=== PATIENT | male | born 1940 | race Caucasian/White ===

== ENCOUNTER 2017-07-11 21:13 | Emergency (ER) | payer MEDICARE, SELFPAY ==
[2017-07-11 21:17] VITALS: BP 149/80; PULSE 75; RESP 14; TEMP 36.4; O2SAT 99; BMI 23.0
--- NOTE | 2017-07-11 22:03 | PC.NURSE ---
Post op partial knee replacement - dressing intact - area around dressing swollen and reddened - warm to touch - contusion to posterior aspect of knee - pain increases with weight bearing.
[2017-07-11 22:10] LABS: Add Manual Diff / Slide Review NO; Basophils Percent Auto 0.9 % (0-2); Eosinophils Percent Auto 2.8 % (2-4); Hematocrit 38.7 % (41-53); Hemoglobin 13.3 g/dL (13.5-17.5); Lymphocytes Percent Auto 22.5 % (25-40); Mean Corpuscular HGB Conc 34.5 % (30-36); Mean Corpuscular Hemoglobin 31.3 PG (26-34); Monocytes Percent Auto 9.8 % (3-14); Neutrophils Absolute Auto 4600 /uL (3000-5900); Platelet Count 154 X10^3/uL (150-400); Red Blood Cell Count 4.26 X10^6/uL (4.5-5.9); Red Cell Distribution Width 13.7 % (11.6-14.8); White Blood Cell Count 7.2 X10^3/uL (4.5-11.0)
[2017-07-11 22:17] LABS: Lactate (Lactic Acid) 1.1 mmol/L (0.7-2.1)
[2017-07-11 22:19] LABS: BUN Creatinine Ratio 27.5 (6-22); Bilirubin Total 0.8 mg/dL (0.2-1.3); Blood Urea Nitrogen 22 mg/dL (9-20); Carbon Dioxide 31 mmol/L (22-32); Chloride 100 mmol/L (98-107); Estimated Glomerular Filt Rate > 60.0 mL/min (>60); Glucose 107 mg/dL (80-110); Sodium 141 mmol/L (137-145)
[2017-07-11 22:20] LABS: HEMOLYSIS 75 (0-50)
[2017-07-11 22:21] LABS: Potassium 4.5 mmol/L (3.4-5.1)
[2017-07-11 22:25] LABS: C-Reactive Protein Quant 3.5 mg/dL (<1.0)
[2017-07-11 22:32] VITALS: BP 115/70; PULSE 70; RESP 14; O2SAT 100
--- NOTE | 2017-07-11 22:33 | PC.NURSE ---
2nd blood culture obtained
[2017-07-11 22:36] LABS: Procalcitonin < 0.05 ng/mL (<0.5)
[2017-07-11 23:00] VITALS: BP 110/66; PULSE 70; RESP 14; O2SAT 98
--- NOTE | 2017-07-12 05:35 | ED_ITS ---
HPI - Extremity Injury (Lower) General Chief Complaint: Extremity Injury, Lower Stated Complaint: KNEE SURGERY 07/06/17 SWELLING Time Seen by Provider: 07/11/17 21:39 Source: patient Mode of arrival: ambulatory Limitations: no limitations History of Present Illness HPI Narrative: Patient presents to the ED with chief complaint of some worsening of pain and swelling in his L knee which he just had an operation on last week. He had a L partial knee by Dr. Horvath (ortho) here at our hospital. Surgery went well. He denies systemic symptoms such as fever, chills. He can ambulate though with some pain. He can flex/extend at the knee though with pain. He admits to some increased redness and warmth but denies any drainage from the incision site. MD complaint: knee injury Onset (ago): hour(s) Related Data Home Medications Medication Instructions Recorded Confirmed finasteride 5 mg PO DAILY 07/11/17 07/11/17 gabapentin 600 mg PO TID 07/11/17 07/11/17 oxycodone 5 mg PO Q4-6H PRN 07/11/17 07/11/17 tamsulosin 0.4 mg PO DAILY 07/11/17 07/11/17 tizanidine 2 mg PO DAILY 07/11/17 07/11/17 warfarin 5 mg PO 4XW 07/11/17 07/11/17 warfarin 7.5 mg PO 3XW 07/11/17 07/11/17 Allergies Allergy/AdvReac Type Severity Reaction Status Date / Time Penicillins Allergy Severe Rash Verified 07/11/17 21:21 Sulfa (Sulfonamide Allergy Severe Rash Verified 07/11/17 21:21 Antibiotics) tetracycline Allergy Severe Rash Verified 07/11/17 21:21 articaine [From Septocaine] Allergy Intermediate Verified 07/11/17 21:21 epinephrine [From Septocaine] Allergy Intermediate Verified 07/11/17 21:21 Review of Systems Review of Systems All systems reviewed & are unremarkable except as noted in HPI and below Constitutional Denies chills, Denies fever(s), Denies lethargy and Denies weakness Eyes Denies change in vision, Denies eye discharge, Denies irritation and Denies loss of vision ENT Ears, Nose, Mouth, and Throat: Denies change in voice, Denies neck pain and Denies sore throat Cardiovascular Denies chest pain, Denies irregular heart rhythm, Denies lightheadedness, Denies palpitations, Denies dyspnea, Denies dyspnea on exertion and Denies orthopnea Respiratory Denies cough, Denies dyspnea, Denies dyspnea on exertion and Denies wheezing Gastrointestinal Gastrointestinal: Denies abdominal pain, Denies change in bowel habits, Denies diarrhea, Denies nausea and Denies vomiting Genitourinary Denies hematuria, Denies flank pain, Denies urinary incontinence and Denies urinary urgency Musculoskeletal Reports joint swelling, Reports limited range of motion, Denies neck pain, Reports stiffness and Denies tingling Integumentary/Breasts Denies pruritus, Reports erythema, Denies rash and Denies wounds Neurologic Denies confusion, Denies loss of vision, Denies tingling, Denies paresthesias and Denies weakness Psychiatric Denies anxiety, Denies confusion, Denies depression, Denies homicidal ideation and Denies suicidal ideation Endocrine Denies palpitations Hematologic/Lymphatic Denies easy bruising Allergic/Immunologic Denies wheezing PFSH Social History Smoking Status: Never smoker Exam Initial Vital Signs Initial Vital Signs: Vital Signs Temperature 97.5 F L 07/11/17 21:17 Pulse Rate 75 07/11/17 21:17 Respiratory Rate 14 07/11/17 21:17 Blood Pressure 149/80 H 07/11/17 21:17 Pulse Oximetry 99 07/11/17 21:17 Const General: cooperative and well developed Nutritional Appearance: well nourished Orientation: alert, awake, oriented x3 and not confused [facility] Head: normocephalic and atraumatic Ears: external ears normal and TM's normal bilaterally Nose: external nose normal and No nasal discharge Face and sinus: sinuses nontender, face symmetric, no sinus tenderness and No dry mucous membranes Mouth: oral mucosae normal and moist mucous membranes Teeth and gingiva: dentition normal Throat: tonsils normal and uvula midline Resp Effort & Inspection: normal respiratory effort, able to speak in complete sentences, no respiratory distress and no use of accessory muscles Auscultation: clear to auscultation bilaterally, no rales, no rhonchi and no wheezes GI Inspection: non-distended Palpation: soft, no hepatosplenomegaly, No guarding, No pulsatile mass and No tender Auscultation: normal bowel sounds Back/Spine/Pelvis Back: No CVA tenderness Cervical Spine: cervical ROM normal and No pain with cervical ROM Thoracic/Lumbar Spine: thoracic and lumbar spine normal to inspection Skin General: no rashes or lesions noted, No jaundice, No petechiae and warm Extrem Left lower extremity: edema and knee Details: tenderness, swelling and abnormal ROM Course Orders Ordered: ED Orders 07/11/17 21:54 Basic Metabolic Panel Stat Bilirubin Total Stat C-Reactive Protein Quant Stat Complete Blood Count AUTO DIFF Stat Lactate (Lactic Acid) Stat Procalcitonin Stat 07/11/17 22:29 Blood Culture Stat Consultations Consultation #1: call to Dr. Anders (ortho) whom suggests close follow up as an outpatient and shares the opinion that (given exam and labs) this is unlikely to be infectious/septic joint Vital Signs - 8 hr 07/11/17 22:32 07/11/17 23:00 Pulse Rate 70 70 Respiratory Rate 14 14 Blood Pressure [Left Arm] 115/70 110/66 Pulse Oximetry 100 98 MDM - Extremity Injury (Lower) Medical Records Attestation: I reviewed the patient's medical records. Lab Data Result diagrams: 07/11/17 21:54 07/11/17 21:54 Lab Results 07/11/17 07/11/17 07/11/17 Range/Units 21:54 21:54 21:54 WBC 7.2 (4.5-11.0) X10^3/uL RBC 4.26 L (4.5-5.9) X10^6/uL Hgb 13.3 L (13.5-17.5) g/dL Hct 38.7 L (41-53) % MCV 91.0 (80-100) fL MCH 31.3 (26-34) PG MCHC 34.5 (30-36) % RDW 13.7 (11.6-14.8) % Plt Count 154 (150-400) X10^3/uL Neut % (Auto) 64.0 (50-75) % Lymph % (Auto) 22.5 L (25-40) % [place] % (Auto) 9.8 (3-14) % Eos % (Auto) 2.8 (2-4) % Baso % (Auto) 0.9 (0-2) % Neut # (Auto) 4600 (8860-1150) /uL Sodium (137-145) mmol/L Potassium (3.4-5.1) mmol/L Chloride (98-107) mmol/L Carbon Dioxide (22-32) mmol/L BUN (9-20) mg/dL Creatinine (0.66-1.25) mg/dL Estimated GFR (>60) mL/min BUN/Creatinine Ratio (6-22) Glucose (80-110) mg/dL Lactate (0.7-2.1) mmol/L Calcium (8.4-10.2) mg/dL Total Bilirubin (0.2-1.3) mg/dL C-Reactive Protein 3.5 H (<1.0) mg/dL Procalcitonin < 0.05 (<0.5) ng/mL 07/11/17 07/11/17 Range/Units 21:54 21:54 WBC (4.5-11.0) X10^3/uL RBC (4.5-5.9) X10^6/uL Hgb (13.5-17.5) g/dL Hct (41-53) % MCV (80-100) fL MCH (26-34) PG MCHC (30-36) % RDW (11.6-14.8) % Plt Count (150-400) X10^3/uL Neut % (Auto) (50-75) % Lymph % (Auto) (25-40) % [place] % (Auto) (3-14) % Eos % (Auto) (2-4) % Baso % (Auto) (0-2) % Neut # (Auto) (1913-9574) /uL Sodium 141 (137-145) mmol/L Potassium 4.5 (3.4-5.1) mmol/L Chloride 100 (98-107) mmol/L Carbon Dioxide 31 (22-32) mmol/L BUN 22 H (9-20) mg/dL Creatinine 0.80 (0.66-1.25) mg/dL Estimated GFR > 60.0 (>60) mL/min BUN/Creatinine Ratio 27.5 H (6-22) Glucose 107 (80-110) mg/dL Lactate 1.1 (0.7-2.1) mmol/L Calcium 9.0 (8.4-10.2) mg/dL Total Bilirubin 0.8 (0.2-1.3) mg/dL C-Reactive Protein (<1.0) mg/dL Procalcitonin (<0.5) ng/mL Discharge Plan Departure Patient Disposition: Home, Self-Care Clinical Impression: Post-op pain Discharge Date/Time: 07/11/17 23:37 Interventions: ED Discharge Assessment Last Done: 07/11/17 23:37 Instructions: How to Care for a Surgical Wound Activity Restrictions/Additional Instructions: call ortho tomorrow morning for follow up appointment this week Return if worse symptoms such as fever, chills, nausea or vomiting Prescriptions: No Action gabapentin 600 mg tablet 600 mg PO TID RF: 0 tizanidine 2 mg tablet 2 mg PO DAILY RF: 0 tamsulosin 0.4 mg Capsule,Extended Release 24hr 0.4 mg PO DAILY RF: 0 warfarin 5 mg tablet 5 mg PO 4XW RF: 0 warfarin 5 mg tablet 7.5 mg PO 3XW RF: 0 finasteride 5 mg tablet 5 mg PO DAILY RF: 0 oxycodone 5 mg tablet 5 mg PO Q4-6H PRN (Reason: Pain (Scale Score 4-6)) RF: 0 Referrals: Malu Freedman DO [Primary Care Provider] -
== END 2017-07-11 23:37 | disposition home or self-care (01) ==
PROVIDERS: Emergency Provider Emergency Medicine; Family Provider Family Medicine; PCP Family Medicine
DX: G89.18 Other acute postprocedural pain (principal)
CPT/HCPCS: 36415; 36591; 80048; 82247; 83605; 84145; 85025; 86140; 87040; 99282; 99283

== ENCOUNTER 2017-11-29 06:47 | Outpatient (CLI) | payer MEDICARE, SELFPAY ==
[2017-11-29] VITALS (10 sets, daily range): BP systolic 91–122; BP diastolic 57–75; PULSE 69–72; RESP 14–18; TEMP 36.2; O2SAT 99–100
--- NOTE | 2017-11-29 06:49 | DI.RAD.S_ITS ---
PROCEDURE: PAIN C/T INTERLAMINAR INJECT INDICATIONS: SPINAL STENOSIS FINDINGS: Fluoroscopic spot filming was performed to verify placement of spinal needles at the C6-C7 level(s), as labeled on the films. Appropriate location(s) of the needle tip(s) was confirmed by injection of iodinated contrast. IMPRESSION: Successful dorsal translaminar epidural steroid injection needle tip positioning. Dictated by: Philippe Hernandez M.D. on 11/29/2017 at 16:32 Approved by: Philippe Hernandez M.D. on 11/29/2017 at 16:32
[2017-11-29 08:05] LABS: INR 1.2 (0.9-1.3); Prothrombin Time 12.6 SECONDS (10.1-12.7)
--- NOTE | 2017-11-29 08:13 | PC.NURSE ---
pain with headache, discomfor with neck
[2017-11-29] MEDS: MIDAZOLAM 5 MG/5 ML VIAL IV (08:34)
[2017-11-29] MEDS: IOPAMIDOL 15 ML VIAL 3 ML INJ (08:41)
[2017-11-29] MEDS: LIDOCAINE 1% 20 ML INJ 5 ML INJ (08:41)
[2017-11-29] MEDS: DEXAMETHASONE 10 MG/ML VIAL 30 MG INJ (08:41)
--- NOTE | 2017-11-29 08:44 | PC.NURSE ---
transporting pt to post procedure room in stable condition
--- NOTE | 2017-11-29 08:48 | PM.PROC.1 ---
Procedures Date/Time Date of procedure: 11/29/17 Time of procedure: 08:48 General Procedure description: PREOP DIAGNOSIS 1. CERVICAL STENOSIS, 2. CERVICAL HNP WITH UPPER EXTREMITY RADICULAR FEATURES, POST OP DIAGNOSIS 1. CERVICAL STENOSIS, 2. CERVICAL HNP WITH UPPER EXTREMITY RADICULAR FEATURES, PROCEDURES 1. FLUORSCOPICALLY GUIDED CONTRAST CONTROLLED INTERLAMINAR EPIDURAL STEROID INJECTION - C6/7 TL CHIO PHYSICIAN: Vishal Wilkins, DO INDICATIONS Loi is referred by Dr. Freedman for treatment of Cervical HNP with Upper Extremity Paresthesias. FINDINGS Cervical Stenosis due to disc deterioration and nerve root irritation and nerve root irritation DESCRIPTION OF PROCEDURE Fluoroscopically guided, contrast-controlled C6/7 translaminar epidural steroid injection with conscious sedation. Following denial of allergy and review of potential side effects and complications, including, but not necessarily limited to, infection, allergic reaction, local tissue breakdown, temporary as well as permanent nerve injury, stroke, paralysis, and possible , the patient indicated that patient understood and agreed to proceed. An informed consent document was signed by the patient, witnessed by a nurse, and placed in the patient's chart. Additionally, other treatment options including modalities, medications, and physical therapy were reviewed with the patient. After review of previous anaesthesic history and IV conscious sedation the patient was deemed safe to proceed with todays procedure with IV conscious sedation as ASA class II designation. Safety time-out was performed to confirm patient ID, procedure to be performed and site of procedure. IV sedation was accomplished with a combination of 3mg of Versed administered by the RN after DO order, titrated to patient comfort during the course of the procedure while the patient remained responsive to all verbal commands. In the prone position, following sterile prep and drape of the cervical region, the C6/7 translaminar space was identified fluoroscopically. The skin was anesthetized via a 25-gauge 1.5-inch needle with 1% lidocaine solution. At this point, a 25-gauge, 2.5-inch short bevel spinal needle was atraumatically introduced and advanced under fluoroscopic guidance into epidural space at the C6/7 translaminar space. Depth was confirmed on lateral view. Radiological data, including multiple fluoroscopic views of the cervical spine, reveal a spinal needle at the C6/7 translaminar space. Lateral views then show placement of the needle in the epidural space. Subsequent views show contrast material flowing superiorly and inferiorly in the epidural space. DSA fluoroscopy with live contrast injection, once again, confirmed no vascular or intrathecal uptake. At this point, using loss of resistance technique with saline and air, the epidural space was entered. Following negative aspiration, injection of approximately 1.5 cc of Isovue-200 with live fluoroscopy in the AP view confirmed epidural flow in the epidural space without vascular or intrathecal uptake observed. Subsequently, a test dose of 1 cc of 1% lidocaine solution was injected and patient was observed for two minutes without signs or symptoms of complications, including abdominal pain, shortness of breath, bilateral upper or lower extremity weakness, nausea and vomiting, prior to steroid injection. At this point, 3 cc or 30 mg of dexamethasone was then injected without incident. The patient tolerated the procedure well without signs or symptoms of complications prior to being transferred to the recovery area for further monitoring, The patient was then transferred to the recovery area where they were observed for an appropriate period of time after the injection. The patient reported a VAS score of 6 prior to the procedure and a post-procedure VAS of 0. Total Fluoroscopy Time: 37.0 seconds Total Conscious Time: 24min POST OP INSTRUCTIONS The patient was provided a Pain Log to continue to record their response to the target-specific procedure prior to follow-up visit with the referring provider. Additionally, specific post-injection care instructions and a contact number to our office were provided if concerns arise regarding possible complications associated with the procedure are suspected. Vishal Wilkins, Complications: none
--- NOTE | 2017-11-29 08:53 | PC.NURSE ---
pt received from Mya MURRIETA via w/c, alert and able to transfer from W/C to chair, pt awake and able to drink coffee.
== END 2017-11-29 09:15 ==
PROVIDERS: PCP Family Medicine; Visit Provider Physical Medicine & Rehabilitation
DX: M48.02 Spinal stenosis, cervical region (principal); M50.123 Cervical disc disorder at C6-C7 level with radiculopathy
CPT/HCPCS: 36415; 62321; 85610; 99152; J1100; J2250

== ENCOUNTER → 2018-06-14 08:46 | Outpatient (CLI) | payer MEDICARE, SELFPAY ==
--- NOTE | 2018-06-14 08:48 | DI.CT.S_ITS ---
PROCEDURE: CT CERVICAL SPINE WO CON INDICATIONS: c-spine evaluation TECHNIQUE: Noncontrast 3 mm thick sections acquired from the skull base to the T4 level. Sagittal and coronal reformats were then constructed. For radiation dose reduction, the following was used: automated exposure control, adjustment of mA and/or kV according to patient size. COMPARISON: None. FINDINGS: Image quality: Excellent. Bones: No fractures or dislocations. Visualized superior ribs are intact. Degenerative changes are seen throughout, with moderate disc space narrowing at C4-C5 and moderate to severe disc space narrowing at C6-C7. Endplate irregularity and sclerosis are seen, which are most prominent at C6-C7. Calcification/ossification can be seen within the C2-C3 disc space and to a milder degree within the anterior C4-C5 disc space. Facet arthropathy is seen, including fusion of the C2-C3 level on both sides, right worse than left, as well as fusion of the facet joints on the left side at C4-C5. Soft tissues: Prevertebral soft tissues are normal in thickness. No paravertebral hematomas. No apical pneumothoraces. A pacer device is seen. IMPRESSION: Multiple levels of cervical spine degenerative change are seen, including moderate to severe disc space narrowing at C6-C7. Dictated by: Jose Guadalupe Bright M.D. on 06/14/2018 at 8:24 Approved by: Jose Guadalupe Bright M.D. on 06/14/2018 at 8:27
== END ==
PROVIDERS: PCP Family Medicine; Visit Provider Physical Medicine & Rehabilitation
DX: M48.02 Spinal stenosis, cervical region (principal); M47.812 Spondylosis without myelopathy or radiculopathy, cervical region
CPT/HCPCS: 72125

== ENCOUNTER 2018-07-18 06:54 | Outpatient (CLI) | payer MEDICARE, SELFPAY ==
[2018-07-18] VITALS (7 sets, daily range): BP systolic 92–120; BP diastolic 69–89; PULSE 65–89; RESP 16; TEMP 36.1; O2SAT 97–100
--- NOTE | 2018-07-18 06:56 | DI.RAD.S_ITS ---
PROCEDURE: PAIN C/T FACET INJ/BLK 1ST L INDICATIONS: SPONDYLOSIS FINDINGS: Fluoroscopic spot filming was performed to verify placement of spinal needles at the C4-C5, C5-C6, and C6-C7 level(s), as labeled on the films. Appropriate location(s) of the needle tip(s) was confirmed by injection of iodinated contrast. IMPRESSION: Intraprocedural examination within normal limits. Dictated by: Jose Guadalupe Bright M.D. on 07/18/2018 at 8:53 Approved by: Jose Guadalupe Bright M.D. on 07/18/2018 at 8:55
[2018-07-18 08:13] LABS: Prothrombin Time 12.1 SECONDS (10.1-12.7)
[2018-07-18] MEDS: fentaNYL 100 MCG/2 ML INJ 50 MCG IV (08:30)
[2018-07-18] MEDS: MIDAZOLAM 5 MG/5 ML VIAL IV (08:30)
[2018-07-18] MEDS: IOPAMIDOL 15 ML VIAL 3 ML INJ (08:37)
[2018-07-18] MEDS: LIDOCAINE 1% 20 ML INJ 5 ML INJ (08:38)
--- NOTE | 2018-07-18 08:49 | PC.NURSE ---
Pt tolerated procedure well. Able to get pt off table and into wheelchair with 2 person standby assist. Transferred pt via wheelchair to pre procedure room for continued monitoring with Mya MURRIETA.
--- NOTE | 2018-07-18 08:57 | P.PCN_ITS ---
Procedures Date/Time Date of procedure: 07/18/18 Time of procedure: 08:55 General Procedure description: PREOP DIAGNOSIS 1. FACET ARTHROPATHY 2. AXIAL NECK PAIN POST OP DIAGNOSIS 1. FACET ARTHROPATHY 2. AXIAL NECK PAIN PROCEDURES 1. FLUOROSCOPICALLY GUIDED, CONTRAST-CONTROLLED RIGHT C4/5, C5/6 AND C6/7 FACET JOINT INJECTIONS WITH CONSCIOUS SEDATION. PHYSICIAN: Vishal Wilkins, INDICATIONS Loi is referred by Dr. Freedman for treatment of Axial Neck Pain DESCRIPTION OF PROCEDURE Fluoroscopically guided, contrast-controlled right C4/5, C5/6 and C6/7 facet joint injections with conscious sedation. Following denial of allergy and review of potential side effects and complications, including, but not necessarily limited to, infection, allergic reaction, local tissue breakdown, stroke, temporary or permanent nerve injury and paralysis, the patient indicated that the patient understood and agreed to proceed. An informed consent document was signed by the patient, witnessed by a nurse, and placed in the patient's chart. Additionally, other treatment options including medications, modalities, and physical therapy were reviewed with the patient. After review of previous anaesthesic history and IV conscious sedation the patient was deemed safe to proceed with todays procedure with IV conscious sedation as ASA class II designation. Safety time-out was performed to confirm patient ID, procedure to be performed and site of procedure. IV sedation was accomplished with a combination of 3mg of Versed and 50mcg Fentanyl was administered by the RN after DO order, titrated to patient comfort during the course of the procedure while the patient remained responsive to all verbal commands In the prone position, following sterile prep and drape of the cervical spine region, the posterior aspect of the right C4/5, C5/6 and C6/7 facet joints were identified fluoroscopically. The skin was anesthetized via a 25-gauge 1.5-inch needle with 1% lidocaine solution into the corresponding facet joints. At this point, a 25-gauge 2.5-inch spinal needle was atraumatically introduced and advanced under fluoroscopic guidance into the corresponding facet joints. Following negative aspiration, injections of approximately 0.2-cc of Isovue 200 confirmed interarticular placement without vascular uptake. At this point, a total of 1 cc including 0.5 cc or 5mg of dexamethasone combined with 0.5cc of 1% lidocaine solution was injected without complication into each of the corresponding facet joints. The procedure tolerated the procedure well without signs or symptoms of complications prior to transfer to the recovery area continued monitoring without incident. The patient was then transferred to the recovery area where they were observed for an appropriate period of time after the injection. The patient reported a VAS score of 7 prior to the procedure and a post- procedure VAS of 0. Total Fluoroscopy Time: 20.5 seconds Total Conscious Sedation Time: 24 min POST OP INSTRUCTIONS They were provided a Pain Log to continue to record their response to the target-specific procedure prior to their follow-up visit with their referring physician. Additionally, specific post-injection care instructions and a contact number to our office were provided if concerns arise regarding possible complications associated with the procedure are suspected. Vishal Wilkins, Complications: none
--- NOTE | 2018-07-18 08:59 | PC.NURSE ---
ACCEPTED CARE OF PT IN POST PROC AREA IN STABLE CONDITION
[2018-07-18] MEDS: BUPIVACAINE 0.5% (PF) VIAL 2 ML INJ (09:02)
[2018-07-18] MEDS: DEXAMETHASONE 10 MG/ML VIAL 30 MG INJ (09:02)
== END 2018-07-18 09:29 | disposition home or self-care (01) ==
LOC: RAD 06:55
PROVIDERS: PCP Family Medicine; Visit Provider Physical Medicine & Rehabilitation
DX: M47.812 Spondylosis without myelopathy or radiculopathy, cervical region (principal); M54.2 Cervicalgia; Z01.812 Encounter for preprocedural laboratory examination; Z79.01 Long term (current) use of anticoagulants
CPT/HCPCS: 36415; 64490; 64491; 64492; 64494; 64495; 85610; 99152; J1100; J2250; J3010

== ENCOUNTER 2018-08-08 07:52 | Outpatient (CLI) | payer MEDICARE, SELFPAY ==
[2018-08-08] VITALS (8 sets, daily range): BP systolic 109–130; BP diastolic 63–87; PULSE 69–101; RESP 16; TEMP 36.2; O2SAT 97–100
--- NOTE | 2018-08-08 07:55 | DI.RAD.S_ITS ---
PROCEDURE: PAIN L/SI FACET INJ/BLK 1STL INDICATIONS: SPONDYLOSIS FINDINGS: Fluoroscopic spot filming was performed to verify placement of spinal needles as labeled on the films. Appropriate location(s) of the needle tip(s) was confirmed by injection of iodinated contrast. IMPRESSION: Fluoroscopy for pain management. Dictated by: Matheus Stringer M.D. on 08/08/2018 at 11:54 Approved by: Matheus Stringer M.D. on 08/08/2018 at 11:54
--- NOTE | 2018-08-08 09:59 | P.PCN_ITS ---
Procedures Date/Time Date of procedure: 08/08/18 Time of procedure: 09:56 General Procedure description: PREOP DIAGNOSIS 1. FACET ARTHROPATHY 2. AXIAL NECK PAIN POST OP DIAGNOSIS 1. FACET ARTHROPATHY 2. AXIAL NECK PAIN PROCEDURES 1. FLUOROSCOPICALLY GUIDED, CONTRAST-CONTROLLED RIGHT C4/5, C5/6 AND C6/7 FACET JOINT INJECTIONS WITH CONSCIOUS SEDATION. PHYSICIAN: Vishal Wilkins, INDICATIONS Loi is referred by Dr. Freedman for treatment of Axial Neck Pain DESCRIPTION OF PROCEDURE Fluoroscopically guided, contrast-controlled right C4/5, C5/6 and C6/7 facet joint injections with conscious sedation. Following review of allergy and review of potential side effects and complications, including, but not necessarily limited to, infection, allergic reaction, local tissue breakdown, stroke, temporary or permanent nerve injury and paralysis, the patient indicated that the patient understood and agreed to proceed. An informed consent document was signed by the patient, witnessed by a nurse, and placed in the patient's chart. Additionally, other treatment options including medications, modalities, and physical therapy were reviewed with the patient. After review of previous anaesthesic history and IV conscious sedation the patient was deemed safe to proceed with todays procedure with IV conscious sedation as ASA class II designation. Safety time-out was performed to confirm patient ID, procedure to be performed and site of procedure. IV sedation was accomplished with a combination of 2mg of Versed and 50mcg of Fentanyl was administered by the RN after DO order, titrated to patient comfort during the course of the procedure while the patient remained responsive to all verbal commands In the prone position, following sterile prep and drape of the cervical spine region, the posterior aspect of the right C5/6 and C6/7 facet joints were identified fluoroscopically. The skin was anesthetized via a 25-gauge 1.5-inch needle with 1% lidocaine solution into the corresponding facet joints. At this point, a 25-gauge 2.5-inch spinal needle was atraumatically introduced and advanced under fluoroscopic guidance into the corresponding facet joints. Following negative aspiration, injections of approximately 0.2-cc of Isovue 200 confirmed interarticular placement without vascular uptake. At this point, a total of 1 cc including 0.5 cc or 5 mg of dexamethasone combined with 0.5 cc of 1% lidocaine solution was injected without complication into each of the corresponding facet joints. The procedure tolerated the procedure well without signs or symptoms of complications prior to transfer to the recovery area continued monitoring without incident. The patient was then transferred to the recovery area where they were observed for an appropriate period of time after the injection. The patient reported a VAS score of 7 prior to the procedure and a post- procedure VAS of 0. Total Fluoroscopy Time: 20.5 seconds Total Conscious Sedation Time: 24 min POST OP INSTRUCTIONS They were provided a Pain Log to continue to record their response to the target-specific procedure prior to their follow-up visit with their referring physician. Additionally, specific post-injection care instructions and a contact number to our office were provided if concerns arise regarding possible complications associated with the procedure are suspected. Vishal Wilkins, Complications: none
[2018-08-08] MEDS: fentaNYL 100 MCG/2 ML INJ 50 MCG IV (10:09)
[2018-08-08] MEDS: MIDAZOLAM 5 MG/5 ML VIAL IV (10:09)
[2018-08-08] MEDS: DEXAMETHASONE 10 MG/ML VIAL 30 MG INJ (10:14)
[2018-08-08] MEDS: IOPAMIDOL 15 ML VIAL 3 ML INJ (10:14)
--- NOTE | 2018-08-08 10:23 | PC.NURSE ---
Pt returned via wheelchair awake and alert, able to get into chair from w/c with standby assist. Resumed monitoring from Mya MURRIETA.
[2018-08-08] MEDS: BUPIVACAINE 0.5% (PF) VIAL 2 ML INJ (10:26)
== END 2018-08-08 10:45 ==
LOC: RAD 07:54
PROVIDERS: PCP Family Medicine; Visit Provider Physical Medicine & Rehabilitation
DX: M47.812 Spondylosis without myelopathy or radiculopathy, cervical region (principal); M54.2 Cervicalgia; Z01.812 Encounter for preprocedural laboratory examination
CPT/HCPCS: 36415; 64490; 64491; 64492; 64493; 85610; 99152; J1100; J2250; J3010

== ENCOUNTER → 2018-11-20 06:32 | Outpatient (CLI) | payer MEDICARE, SELFPAY ==
--- NOTE | 2018-11-20 | DI.ECHO.S_ITS ---
[facility]---------+ [facility] +---------+ : : [address] : : : : [id number] : : : : Phone: [phone]+ Echocardiogram Report + + :Name: CONNER ARIAS Study Date: 11/20/2018 Height: 72 in : :[facility] Location: [facility] Weight: 165 lb : : Gender: Male BSA: 2.0 m2 : :: 1940 Age: 78 yrs BP: 108/60 mmHg: :Reason For Study: Dizziness : :Ordering Physician: William : :Vance Cardoza Performed By: Carmella Page : + + Interpretation Summary The left ventricle is mildly dilated. Left ventricular systolic function is mild to moderately reduced. The ejection fraction is estimated to be 40-45%. LVEF has not changed since 08/15/2013. There is mild to moderate global hypokinesis of the left ventricle. There is a mild dyssynchronous contraction pattern due to the paced rhythm. The right ventricle is mild to moderately dilated. There is a pacemaker lead in the right ventricle. The right ventricular systolic function is normal. The right ventricular systolic pressure is estimated to be at least 29 mmHg based on an estimated right atrial pressure of 8 mm Hg. Both atria are severely dilated. Both atria have significantly increased in size since the prior echo exam. There is moderate mitral regurgitation. There is moderate to severe tricuspid regurgitation. Both MR and TR have increased. The aortic root is mildly dilated. Procedure: A two-dimensional transthoracic echocardiogram with color flow and Doppler was performed. The study quality was technically adequate. Comparison is made with the echocardiogram of 08/15/2013. The patient has a paced rhythm. Left Ventricle: The left ventricle is mildly dilated. There is normal left ventricular wall thickness. Left ventricular systolic function is mild to moderately reduced. The ejection fraction is estimated to be 40-45%. There is mild to moderate global hypokinesis of the left ventricle. There is a mild dyssynchronous contraction pattern due to the paced rhythm. Diastolic function could not be accurately assessed due to atrial fibrillation. Right Ventricle: The right ventricle is mild to moderately dilated. There is a pacemaker lead in the right ventricle. The right ventricular systolic function is normal. Atria: Both atria are severely dilated. Both atria have significantly increased in size since the prior echo exam. There is no Doppler evidence for an interatrial shunt. Mitral Valve: The mitral valve leaflets appear mildly thickened, but open well. There is moderate mitral regurgitation. Compared to the prior echo study, there has been an increase in the severity of mitral regurgitation. Aortic Valve: The aortic valve is trileaflet. The aortic valve opens well. There is trace aortic regurgitation. Tricuspid Valve: The tricuspid valve is normal in structure and function. There is moderate to severe tricuspid regurgitation. The right ventricular systolic pressure is estimated to be at least 29 mmHg based on an estimated right atrial pressure of 8 mm Hg. Pulmonic Valve: The pulmonic valve is not well visualized. There is trace pulmonic regurgitation. Great Vessels: The aortic root is mildly dilated. The ascending aorta is normal in size. The pulmonary artery is not well visualized, but is probably normal size. The IVC is dilated (diameter is greater than 2.1 cm) yet it collapses greater than 50% with a sniff. This suggests a right atrial pressure of 8 mm Hg. Pericardium/ Pleura There is no pericardial effusion. There is no pleural effusion. MMode/2D Measurements & Calculations LVIDd: 5.6 cm LVOT diam: 2.2 cm LVIDs: 4.0 cm Ao root diam: 3.9 cm FS: 28.0 % asc Aorta Diam: 3.3 cm EPSS: 0.15 cm IVSd: 0.64 cm LVPWd: 0.57 cm LV schmitt. diameter/BSA (cm/m^2): 2.9 LV sys. diameter/BSA (cm/m^2): 2.1 LA A2 area: 29.3 cm2 RA long axis: 6.0 cm LA A4 area: 29.9 cm2 RA area: 27.7 cm2 LA length (vol): 6.6 cm RA vol: 108.5 ml LA vol: 112.7 ml RA : 55.3 ml/m2 LA vol index: 57.4 ml/m2 IVC diam: 2.5 cm RVD1 (basal): 4.8 cm RVD2 (mid): 3.9 cm TAPSE: 2.5 cm Doppler Measurements & Calculations Ao V2 max: 109.4 cm/sec LVOT Max Nagi: 76.1 cm/sec Ao V2 mean: 85.4 cm/sec LV V1 max P.3 mmHg Ao max P.8 mmHg LV V1 VTI: 14.0 cm Ao mean P.1 mmHg RONALDO(I,D): 2.4 cm2 Ao V2 VTI: 21.5 cm RONALDO(V,D): 2.5 cm2 sev ratio: 0.65 RONALDO indexed to BSA (cm^2/m^2): 1.2 MV E max nagi: 61.4 cm/sec TR max nagi: 227.3 cm/sec Med Peak E' Nagi: 6.8 cm/sec TR max P.7 mmHg E/E' med: 9.0 PA V2 max: 53.3 cm/sec Lat Peak E' Nagi: 12.7 cm/sec PA V2 mean: 38.9 cm/sec E/E' lat: 4.8 PA mean P.65 mmHg E/e' average: 6.9 PA Accel Time: 0.13 sec MV P1/2t: 61.7 msec MV P1/2t max nagi: 61.8 cm/sec SV(LVOT): 50.7 ml MVA(P1/2t): 3.6 cm2 Reading Physician:05:51 PM
== END ==
PROVIDERS: PCP Family Medicine; Visit Provider Hospitalist
DX: I08.1 Rheumatic disorders of both mitral and tricuspid valves (principal); R42 Dizziness and giddiness; Z95.0 Presence of cardiac pacemaker
CPT/HCPCS: 93306

== ENCOUNTER → 2019-07-24 08:28 | Outpatient (CLI) | payer MEDICARE, SELFPAY ==
--- NOTE | 2019-07-24 08:29 | DI.RAD.S_ITS ---
PROCEDURE: XR LUMBAR SPINE MIN 4V INDICATIONS: Exacerbation of axial low back pain TECHNIQUE: 5 views of the lumbar spine were acquired. COMPARISON: [facility] [place], [place], SPINE LUMB MIN 4VW, 06/02/2016, 8:33. FINDINGS: Bones: No fracture or focal osseous destruction. Multilevel degenerative endplate sclerosis and spurring. Diffuse facet arthropathy. Slight levocurvature of the lumbar spine. Bilateral hip degeneration. Sacroiliac spurring and sclerosis bilaterally. Severe narrowing of the L4-L5 and L5-S1 disc spaces. Mild/moderate narrowing of the remaining lumbar disc spaces. Soft tissues: Overlying bowel gas pattern is normal. No suspicious soft tissue calcifications. Oblique images: No pars defects. IMPRESSION: Diffuse lumbar spondylosis and facet arthropathy. Overall, no definite interval change Slight levocurvature Dictated by: Elias Markham M.D. on 07/24/2019 at 9:50 Approved by: Elias Markham M.D. on 07/24/2019 at 9:52
--- NOTE | 2019-07-24 09:00 | DI.CT.S_ITS ---
PROCEDURE: CT LUMBAR SPINE WO CON INDICATIONS: Exacerbation of axial low back pain TECHNIQUE: Noncontrast 3 mm thick sections acquired from the T12 level to the sacrum. Sagittal and coronal reformats were constructed. For radiation dose reduction, the following was used: automated exposure control. COMPARISON: [facility], CT, L-SPINE WITHOUT CONTRAST, 11/26/2014, 12:39. FINDINGS: Image quality: Excellent. Bones: There are no fractures or dislocations. No suspicious osseous lesions are identified. Sclerotic and lytic endplate changes consistent with degenerative change are noted at multiple levels as well as scattered Schmorl's nodes. There is severe disc space narrowing at L4-5, mild to moderate L5-S1 and mild throughout the remainder of the lumbar spine. L4-L5 is progressive compared to prior exam. Mild disc bulges are present at L1-L2, L2-3, L3-4 including a small left foraminal protrusion, mild disc bulge at L4-5 and L5-S1. Mild spinal stenosis is present at L1-L2, moderate to severe L2-L3, moderate L3-4. Minimal progression of spinal stenosis is noted. Mild right foraminal narrowing L2-3, minimal to mild right L3-4, mild left L3-4, severe left and moderate to severe right L4-L5 with minimal flattening on the left,. There is very minimal interval progression of foraminal narrowing most notable at L4-5. Multilevel facet arthropathy is present. Soft tissues: No retroperitoneal masses or hematomas. Visualized aorta is normal in caliber. IMPRESSION: 1. Multilevel degenerative changes with areas of progression as noted above. 2. Multilevel foraminal narrowing most severe at L4-5 secondary to facet arthropathy. 3. Multilevel spinal stenosis most notable at L2-3 secondary to disc bulge with contributing effect of facet/ligamentum flavum arthropathy. Dictated by: Hanny Nguyễn M.D. on 07/24/2019 at 10:50 Approved by: Hanny Nguyễn M.D. on 07/24/2019 at 11:02
== END ==
PROVIDERS: PCP Family Medicine; Referring Provider Physical Medicine & Rehabilitation; Visit Provider Physical Medicine & Rehabilitation
DX: M54.5 Low back pain (principal); M47.27 Other spondylosis with radiculopathy, lumbosacral region; M47.26 Other spondylosis with radiculopathy, lumbar region; M48.061 Spinal stenosis, lumbar region without neurogenic claudication; M48.07 Spinal stenosis, lumbosacral region; M16.0 Bilateral primary osteoarthritis of hip
CPT/HCPCS: 72110; 72131

== ENCOUNTER → 2019-08-27 11:20 | Outpatient (CLI) | payer MEDICARE, SELFPAY ==
[2019-08-28 09:57] LABS: COVID19 Sendout Not Detected (Not Detect)
== END ==
PROVIDERS: PCP Family Medicine; Visit Provider Student in an Organized Health Care Education/Training Program
DX: Z01.812 Encounter for preprocedural laboratory examination (principal)
CPT/HCPCS: 87635

== ENCOUNTER 2019-08-30 09:40 | Outpatient (CLI) | payer MEDICARE, SELFPAY ==
[2019-08-30] VITALS (12 sets, daily range): BP systolic 110–147; BP diastolic 50–96; PULSE 68–140; RESP 12–16; TEMP 36; O2SAT 87–100
--- NOTE | 2019-08-30 09:46 | DI.RAD.S_ITS ---
PROCEDURE: PAIN C/T FACET INJ/BLK 1ST L INDICATIONS: CERVICAL RADICULOPATHY COMPARISON: [facility], , PAIN C/T FACET INJ/BLK 1ST L, 07/18/2018, 8:43. FINDINGS: Fluoroscopic spot filming was performed to verify placement of spinal needles at the right C4-C5, C5-C6 and C6-C7 facet level(s), as labeled on the films. Appropriate location(s) of the needle tip(s) was confirmed by injection of iodinated contrast. IMPRESSION: Spinal needles at the level of the right C4-C5, C5-C6 and C6-C7 facets. Dictated by: Jennifer William MD, PhD on 08/31/2019 at 14:04 Approved by: Jennifer William MD, PhD on 08/31/2019 at 14:05
[2019-08-30] MEDS: fentaNYL 100 MCG/2 ML INJ 50 MCG IV (11:20)
[2019-08-30] MEDS: MIDAZOLAM 5 MG/5 ML VIAL IV (11:21)
[2019-08-30] MEDS: BUPIVACAINE 0.25% (PF) VIAL 2 ML INJ (11:22)
[2019-08-30] MEDS: IOPAMIDOL 15 ML VIAL 3 ML INJ (11:22)
[2019-08-30] MEDS: DEXAMETHASONE 10 MG/ML VIAL 30 MG INJ (11:23)
--- NOTE | 2019-08-30 11:44 | P.PCN_ITS ---
Date/Time/Diagnoses Date of procedure: 08/30/19 Time of procedure: 11:45 Pre-procedure diagnosis: 1. FACET ARTHROPATHY 2. AXIAL NECK PAIN Post-procedure diagnosis: same Procedure Notes Procedure: 1. FLUOROSCOPICALLY GUIDED, CONTRAST-CONTROLLED RIGHT C4/5, C5/6 AND C6/7 FACET JOINT INJECTIONS WITH CONSCIOUS SEDATION. Indications: Loi is referred by Dr. Freedman for treatment of Axial Neck Pain Physician: Vishal Wilkins Total Fluoroscopy time (seconds): 11 Total sedation minutes: 24 Complications: none Procedure in detail & Post-procedure care: DESCRIPTION OF PROCEDURE Fluoroscopically guided, contrast-controlled right C4/5, C5/6 and C6/7 facet joint injections with conscious sedation. Following review of allergy and review of potential side effects and complications, including, but not necessarily limited to, infection, allergic reaction, local tissue breakdown, stroke, temporary or permanent nerve injury and paralysis, the patient indicated that the patient understood and agreed to proceed. An informed consent document was signed by the patient, witnessed by a nurse, and placed in the patient's chart. Additionally, other treatment options including medications, modalities, and physical therapy were reviewed with the patient. After review of previous anaesthesic history and IV conscious sedation the patient was deemed safe to proceed with today?s procedure with IV conscious s edation as ASA class II designation. Safety time-out was performed to confirm patient ID, procedure to be performed and site of procedure. IV sedation was accomplished with a combination of 4mg of Versed and 50mcg of Fentanyl was administered by the RN after DO order, titrated to patient comfort during the course of the procedure while the patient remained responsive to all verbal commands In the prone position, following sterile prep and drape of the cervical spine region, the posterior aspect of the right C4/5, C5/6 and C6/7 facet joints were identified fluoroscopically. The skin was anesthetized via a 25-gauge 1.5-inch needle with 1% lidocaine solution into the corresponding facet joints. At this point, a 25-gauge 2.5-inch spinal needle was atraumatically introduced and advanced under fluoroscopic guidance into the corresponding facet joints. Following negative aspiration, injections of approximately 0.2-cc of Isovue 200 confirmed interarticular placement without vascular uptake. At this point, a total of 1cc including 0.5cc or 5mg of dexamethasone combined with 0.5cc of 1% lidocaine solution was injected without complication into each of the corresponding facet joints. The procedure tolerated the procedure well without signs or symptoms of complications prior to transfer to the recovery area continued monitoring without incident. The patient was then transferred to the recovery area where they were observed for an appropriate period of time after the injection. The patient reported a VAS score of 7 prior to the procedure and a post- procedure VAS of 1. POST OP INSTRUCTIONS They were provided a Pain Log to continue to record their response to the target-specific procedure prior to their follow-up visit with their referring p hysician. Additionally, specific post-injection care instructions and a contact number to our office were provided if concerns arise regarding possible complications associated with the procedure are suspected.
--- NOTE | 2019-08-30 12:22 | PC.NURSE ---
1138: pt arrived to pre proc room via wc. stable transfer to chair, resumed monitoring
--- NOTE | 2019-08-30 15:45 | PC.NURSE ---
Tolerated procedure without incident. VSS upon transfer to post procedure room to [facility] Landaverde. Versed and Fentanyl administered by Paloma Ball. All other meds given by Dr. Wilkins.
== END 2019-08-30 12:05 | disposition home or self-care (01) ==
LOC: RAD 09:43
PROVIDERS: PCP Family Medicine; Referring Provider Physical Medicine & Rehabilitation; Visit Provider Physical Medicine & Rehabilitation
DX: M47.812 Spondylosis without myelopathy or radiculopathy, cervical region (principal); M54.2 Cervicalgia
CPT/HCPCS: 64490; 64491; 64492; 64494; 64495; 99152; J1100; J2250; J3010

== ENCOUNTER 2019-10-24 08:50 | Outpatient (RCR) | payer MEDICARE, SELFPAY ==
--- NOTE | 2019-10-26 11:27 | ST.OPIE ---
Visit Care Team Role Provider Type Malu Freedman DO Family Provider Non-Staff Primary Care Provider Specialty: Family Practice Address: [address] [place] [address], [phone] Email: Swati Ceballos PA-C Attending Provider Non-Staff Referring Provider Specialty: Nursing Address: [address] [place] [address], [id number] Email: Speech-Language Pathology Initial Evaluation [employer] Clinical Swallow Evaluation Start: 10/24/19 11:57 Freq: Status: Active Protocol: Document 10/24/19 11:57 LL (Rec: 10/24/19 12:28 LL [id number]) Clinical Swallow Evaluation Session Time Visit Start Date 10/24/19 Visit Start Time 09:30 Visit Stop Date 10/24/19 Visit Stop Time 10:20 Total Visit Minutes 50 Visit Information Visit Number 1 Plan of Care Dates 10/24/19-12/24/19 Insurance Information Medicare Referral Referring Provider Swati Ceballos PA-C Reason for Referral Dysphagia Setting Assessment Location Outpatient Care Visit Type Note Type Initial evaluation Next Note Type Next Note Type Treatment Note Patient Information Identification Type Name,ID Card History Loi is a 79-year-old male with complaints of increased swallowing difficulty over the last several months. This [employer] S[employer]IOR ASSOCIATE was unable to obtain Loi?s H&P and/or visit notes from [facility] prior to this evaluation. Loi reported that he has been experiencing swallowing difficulty over the last 5 years and that these symptoms have worsened over the last several months. Loi reported the following symptoms: daily coughing / throat clearing with food and liquid, sensation of food and medications getting stuck ( pointed to upper chest), increased effort to initiate swallow (e.g., Loi stated ?I have to really think about swallowing?), and choking x 1 episode around 6 weeks ago. Loi reported that he received a modified barium swallow study (MBS) in [place] on 04/19/19 and provided this [employer]AX SENIOR ASSOCIATE with a copy of recommended safe swallowing guidelines by previous T[employer] SENIOR ASSOCIATE. Recommended safe swallowing guidelines were as follows: avoid using a straw, small / single sips, alternate liquids and solids, limit conversation and distractions while eating or drinking, avoid dry foods, and take medications one at a time with liquids or carrier ( e.g., pudding, applesauce). When describing previous MBS results, Loi stated ? everything went down fine but there was leftover food sitting on my flapper? 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 Loi also reported history of pneumonia, aspiration, and silent aspiration. Loi self- reported a diagnosis of neuropathy and that the neurologist (name unknown) stated that this could cause swallowing issues. Loi also reported that he had a neurology appointment scheduled for testing but was unable to make the appointment . Loi reported no additional medical / surgical history. Subjective Observations Loi arrived on time unaccompanied. He provided a detailed case history and was extremely pleasant to work with. Reported by Patient Pain Intensity 0 Pain Scale Used Numeric (0 - 10) Other Symptoms Choking,Coughing,Difficulty swallowing liquids,Difficulty swallowing pills,Difficulty swallowing solids,Food gets stuck,History of aspiration or pneumonia Comment Loi reported the following symptoms: daily coughing / throat clearing with food and liquid, sensation of food and medications getting stuck ( pointed to upper chest), increased effort to initiate swallow (e.g., Loi stated ?I have to really think about swallowing?), and choking x 1 episode around 6 weeks ago. Loi reported that he has not been following most of the recommended swallowing precautions provided by previous T[employer] SENIOR ASSOCIATE after MBS on . Current Diet Regular,Thin liquids Baseline Feeding Method Independent in self-feeding Patient Questionnaire No Objective Assessment Mental Status Alert,Cooperative Oral Integrity WFL Dentition Within normal limits,Upper dentures/partials,Adequate denture or partial fitting Lip Function Mild impairment Observation of Lips at Rest Right sided weakness/Drooping Pucker Reduced strength Lip Retraction Right sided weakness/Drooping Alternating Pucker/Lip Retraction Incoordination Tongue Function Mild impairment Observations of Tongue at Rest Involuntary movement(s) Tongue Protrusion Involuntary movement(s) Tongue Retraction Within normal limits Tongue Lateralization Reduced strength, Incoordination Jaw Function Within normal limits Hard/Soft Palate Function Within normal limits Nasality Within normal limits Phonation Within normal limits Respiratory Sufficiency Within normal limits Comment Oral Mechanism Examination: generalized facial weakness ( mild), upper lip fasciculations when smiling ( labial retraction), minimal right sided weakness / slight drooping, lingual and labial incoordination, and lingual fasciculations. Natural dentition with small upper right partial. Adequate dentition for age. Food and Liquid Trials Position During Assessment Upright (90 degrees) Liquids Trialed Thin Solids Trialed Puree,Regular Administration Type Cup single sip,Controlled cup sip,Cup consecutive sips,Self- feeding Oral Impairment Moderately impaired Oral Phase Comments Delayed swallow initiation (e. g., Loi stated I have to really think about swallowing ), mildly increased mastication time, and minimal oral residue with cracker, which cleared with a lingual sweep. Pharyngeal Impairment Moderately impaired Pharyngeal Phase Comments Immediate cough and throat clear with thin water by cup. Delayed cough after PO trials. Loi reported feeling food stuck in his throat, but sensation cleared with use of liquid wash following cracker. Fatigue/Endurance Endurance WNL Findings Swallowing Function Oropharyngeal phase dysphagia Severity of Swallow Impairment Moderately impaired Contributing Factors to Swallow Reduced oral strength/ Impairment coordination/sensation, Impaired oral-pharyngeal transport,Delayed swallow initiation Comments Impulsivity and not following recommended swallow strategies Prognosis Good Based on Cognitive status Comment Loi currently presents with moderate oropharyngeal dysphagia and signs of aspiration during and after intake as well as reported symptoms of swallowing difficulties listed above. It is recommended that Loi receive a second modified barium swallow study to determine least restrictive diet, risk for aspiration / aspiration pneumonia, and skilled therapy recommendations. It is also recommended that Loi receive a referral to a neurologist. Impact on Safety and Functioning Risk for aspiration Recommendations Instrumental Assessment Yes Swallowing Treatment Yes Recommended Solids Regular Recommended Liquids Thin Safety Precautions/Swallowing Reduce distractions,Remain Recommendations upright (90 degrees) during all oral intake,Small bites and sips when eating,Slow rate ; swallow between bites,No straw,Alternate liquids and solids Medication Recommendations Whole in Carrier,One at a Time Referrals Recommended Referrals Neurology,Primary Care Provider Education Patient/Caregiver Education Described results of evaluation,Patient expressed understanding of evaluation, Patient expressed agreement with goals & treatment plans, Patient expressed understanding of safety precautions,Patient expressed understanding of feeding recommendations,Patient requires further education/ training Goals Short-term Goals Loi will participate in a modified barium swallow study (MBS) to determine least restrictive diet, risk for aspiration, and skilled therapy recommendations. Recommend ST follow-up after MBS to review results and guide POC.
--- NOTE | 2020-03-18 13:26 | ST.OPDS ---
Patient seen for evaluation on 10/24/19 and has not been seen since that time. Discharge due to lapse in therapy.
== END 2020-03-24 15:11 ==
LOC: SP 08:50
PROVIDERS: Family Provider Family Medicine; PCP Family Medicine; Referring Provider Physician Assistant; Visit Provider Physician Assistant
DX: R47.02 Dysphasia (principal)
CPT/HCPCS: 92610

== ENCOUNTER 2020-06-15 08:35 | Emergency (ER) | payer MEDICARE, SELFPAY ==
[2020-06-15 08:40] VITALS: BP 136/81; PULSE 91; RESP 16; TEMP 36.6; O2SAT 100; BMI 23.7
--- NOTE | 2020-06-15 09:20 | ED.HA ---
HPI - Headache General Chief Complaint: Headache Stated Complaint: Eye/ear pain/throat hurts Time Seen by Provider: 06/15/20 09:20 Source: patient and family () Mode of arrival: Ambulatory Limitations: no limitations History of Present Illness HPI Narrative: This is a 79-year-old male who comes emergency department with complaint of pain and headache over the left side of his scalp, he is having some pain in his eye he has noticed some redness of the eye itself and some tearing patient has had a little bit of earache and notice a little bit of sore throat. Patient did notice that he has had a little bit of redness and some bumps that has started on his scalp. He states that the pain seems to be localized to the left of the upper scalp and face and he does not appreciate any pain in the lower half of his face or neck. Patient has not had similar symptoms in the past he is on warfarin for atrial fibrillation and has a pacemaker as well as several cardiac medications and takes gabapentin daily for chronic neck pain. Patient has tried Tylenol at home with some improvement but not resolution. Patient has antibiotic allergies to sulfa, penicillin and a numbing medication that the dentist use. He states he has had numbing eye drops at the [facility] before without any issue and has used lidocaine numbing cream without any issues. Related Data Home Medications Medication Instructions Recorded Confirmed finasteride 5 mg PO DAILY 07/11/17 09/26/19 gabapentin 600 mg PO TID 07/11/17 09/26/19 tamsulosin 0.4 mg PO DAILY 07/11/17 09/26/19 atorvastatin 40 mg tablet 40 mg PO DAILY 11/17/17 09/26/19 tizanidine 2 mg tablet 2 mg PO TID PRN tab 07/18/19 09/26/19 warfarin 5 mg tablet 5 mg PO DAILY tab 07/18/19 09/26/19 nortriptyline 25 mg capsule 25 mg PO BEDTIME 09/26/19 09/26/19 Previous Rx's Medication Instructions Recorded celecoxib 200 mg capsule 200 mg PO DAILY #30 cap 07/18/19 oxycodone 5 mg PO Q6H PRN #20 tab 06/15/20 valacyclovir 1,000 mg PO TID #21 tab 06/15/20 Allergies Allergy/AdvReac Type Severity Reaction Status Date / Time Penicillins Allergy Severe Rash Verified 09/26/19 08:10 tetracycline Allergy Severe Rash Verified 09/26/19 08:10 articaine [From Septocaine] Allergy Intermediate Burning Verified 09/26/19 08:10 Mouth Syndrome epinephrine [From Septocaine] Allergy Intermediate Burning Verified 09/26/19 08:10 Mouth Syndrome Review of Systems Review of Systems ROS Unobtainable: All systems reviewed & are unremarkable except as noted in HPI and below Patient History Medical History (Updated 06/15/20 @ 09:51 by Arpita Miller DO) Arthritis Headache Lumbosacral spondylosis with radiculopathy Pacemaker Surgical History H/O knee surgery History of tonsillectomy Family History Father Congestive heart failure Mother No problems noted. Social History Smoking Status: Never smoker Smoking Status: Never smoker alcohol intake frequency: 0-2 drinks per day Substance Use Type: does not use Exam Narrative Exam Narrative: GEN: well nourished, well appearing male, alert and oriented x 3, patient appears to be in mild distress. HEENT: Atraumatic, pupils are equal round reactive to light, no photophobia, extraocular movements are intact, nares are clear, TMs are clear with no fluid. Throat is clear without any exudates, erythema, tonsillar enlargement or uvular deviation Visual acuity: right [20/40], left [20/40] and 20/30 b/l w/ glasses. General: no globe trauma Eyelids: normal inspection. Conjunctiva/Sclera: normal inspection on right with injected conjunctiva on the left, on scleral injection. Corneas: normal inspection, examined with fluroscein on left. There is are a few spots of punctate uptake in the sclera but no dendritic lesions and no uptake over the cornea. EOM: intact, no palsy/entrapment Pupils: PERRL, normal accomadation, pupil normal Anterior Chambers: normal inspection, no hypema HEART: Regular rate and rhythm without murmur, clicks, rubs. LUNGS:Lungs clear to auscultation, no wheezes, rales, crackles, chest moves symmetrically ABD:bowel sounds normal, soft, non-tender, no guarding, rebound, rigidity, no masses noted, no hepatosplenomegaly MSCL: full range of motion, normal gait NEURO:CN 2-12 intact, sensation normal SKIN: Patient has erythema over the left upper scalp as well as several small raised bumps. There is no clear fluid-filled vesicles but there do appear to be some beginning to form. Initial Vital Signs Initial Vital Signs: Vital Signs Temperature 97.8 F 06/15/20 08:40 Pulse Rate 91 H 06/15/20 08:40 Respiratory Rate 16 06/15/20 08:40 Blood Pressure 136/81 06/15/20 08:40 Pulse Oximetry 100 06/15/20 08:40 Course Orders Ordered: Discontinued Medications Fluorescein Sodium (Fluorescein 1 Mg Strip) 1 mg EYE-LEFT NOW ONE Stop: 06/15/20 09:29 Last Admin: 06/15/20 09:34 Dose: 1 mg Documented by: RINA Proparacaine HCl (Proparacaine 0.5% Ophth Madisyn) 1 drops EYE-LEFT NOW ONE Stop: 06/15/20 09:29 Last Admin: 06/15/20 09:34 Dose: 1 drops Documented by: RINA Vital Signs Vital signs: Vital Signs - 8 hr 06/15/20 08:40 Temperature 97.8 F Pulse Rate 91 H Respiratory Rate 16 Blood Pressure 136/81 Pulse Oximetry 100 MDM - Headache MDM Narrative Medical decision making narrative: This is a 79-year-old male comes in with rash and history consistent with shingles patient may have some intra-ocular involvement. No dendritic lesions are appreciated but he has injection and some punctate uptake in the sclera but no involvement of the cornea. Discussed with patient plan to put him on antivirals, artificial tears and erythromycin ointment to assist with hydration of the eye itself and referral to Ophthalmology in the morning for recheck as I discussed that he is having involving outbreak of shingles and concerned that he may develop involvement of his eye. Patient is to call tomorrow to follow up with Ophthalmology. Strict return precautions were discussed. He does take gabapentin and review to see if we can adjust his dosage as well as at oxycodone as needed for pain control. Discharge Plan Departure Patient Disposition: Home Clinical Impression: Herpes zoster virus infection of face and ear nerves Instructions: DI for Shingles Activity Restrictions/Additional Instructions: Follow up with Ophthalmology for recheck. Call tomorrow for an appointment let them know that you were seen in the emergency department and that there is concern you may be developing shingles in your eye although no obvious lesion was appreciated today. You may notice a rash continuing to increase over the next several days. Take antivirals until completely gone. Use artificial tears such as Visine 2-4 times daily. You may use erythromycin ointment twice daily to help moisturize twice daily. Continue medications as prescribed. You could increase your gabapentin to 900 mg three times daily if you find this helpful. Take Tylenol up to a 1000 mg every 8 hours as needed for pain. If this is inadequate you may take 1-2 tablets of oxycodone every 6 hours as needed. This medication can make you sleepy do not drive, perform hazardous activities or make any major decisions while taking it. This medication also will make you constipated so make sure to take a stool softener 1-2 times daily until stools are soft and regular. [facility] Please return for fevers greater 100.4 F, severe pain of the eye, loss or decreased vision, severe headaches, syncope or passing out, persistent vomiting facial droop, difficulty with speech, increasing redness, swelling or other skin changes. Prescriptions: New valacyclovir 1 gram tablet 1,000 mg PO TID Qty: 21 RF: 0 oxycodone 5 mg tablet 5 mg PO Q6H PRN (Reason: pain) Qty: 20 RF: 0 No Action gabapentin 600 mg tablet 600 mg PO TID RF: 0 tamsulosin 0.4 mg Capsule,Extended Release 24hr 0.4 mg PO DAILY RF: 0 finasteride 5 mg tablet 5 mg PO DAILY RF: 0 warfarin 5 mg tablet 5 mg PO DAILY RF: 0 atorvastatin 40 mg tablet 40 mg PO DAILY RF: 0 tizanidine 2 mg tablet 2 mg PO TID PRN (Reason: muscle spasticity) RF: 0 Hold Instructions: Home Medication placed on hold at Doctor's office celecoxib [Celebrex] 200 mg capsule 200 mg PO DAILY Qty: 30 RF: 2 Hold Instructions: Home Medication placed on hold at Doctor's office nortriptyline 25 mg capsule 25 mg PO BEDTIME RF: 0 Referrals: Efrain Ford MD [Physician] - Malu Freedman DO [Primary Care Provider] -
[2020-06-15 09:33] VITALS: PULSE 113; O2SAT 100
[2020-06-15 09:34] VITALS: BP 135/97; PULSE 90; O2SAT 99
[2020-06-15] MEDS: FLUORESCEIN 1 MG STRIP EYE-LEFT (09:34)
[2020-06-15] MEDS: PROPARACAINE 0.5% OPHTH SOL 1 DROPS EYE-LEFT (09:34)
[2020-06-15 10:00] VITALS: PULSE 70; O2SAT 100
--- NOTE | 2020-06-15 10:38 | PC.NURSE ---
no open lesions, pt has a few small bumps on left side of head, in hair line.
== END 2020-06-15 10:39 | disposition home or self-care (01) ==
PROVIDERS: Emergency Provider Emergency Medicine; Family Provider Family Medicine; PCP Family Medicine
DX: B02.9 Zoster without complications (principal); R51.9 Headache, unspecified; J02.9 Acute pharyngitis, unspecified
CPT/HCPCS: 99282

== ENCOUNTER → 2020-07-07 08:56 | Outpatient (CLI) | payer MEDICARE, SELFPAY ==
[2020-07-07 10:35] LABS: COVID19 -Nasal RAPID Negative (Negative)
== END ==
PROVIDERS: Family Provider Family Medicine; PCP Family Medicine; Visit Provider Surgery
DX: Z20.822 Contact with and (suspected) exposure to COVID-19 (principal)
CPT/HCPCS: 87635; C9803

== ENCOUNTER 2020-07-08 11:45 | Day surgery (SDC) | payer MEDICARE, SELFPAY ==
--- NOTE | 2020-07-08 | PATH_ITS ---
[facility] Accession Number: [id number] . 01 Material submitted: . PART A: body - RANDOM BIOPSIES PART B: body - POLYP @110 . 02 Diagnosis: A. Random Colon, Biopsies: Tubular adenoma in one of multiple fragments. Remaining fragments of colonic mucosa with no significant diagnostic abnormality. Negative for active, chronic and microscopic colitis. No evidence of malignancy. . B. Colon, Polyp at 110 cm, Biopsy: Tubular adenoma. MRV 07/11/2020 1347 Local . 02 Electronically signed: . Morena Mays MD, Pathologist NPI- [id number] . 01 Gross description: . Part A: RANDOM BIOPSIES: Received in formalin are multiple fragment(s) of blancas, soft tissue measuring 0.1 x 0.1 x 0.1 cm to 0.4 x 0.3 x 0.2 cm submitted entirely in 1 cassette(s) Part B: POLYP @110: Received in formalin are 2 fragment(s) of blancas, soft tissue measuring 0.1 x 0.1 x 0.1 cm to 0.3 x 0.3 x 0.3 cm submitted entirely in 1 cassette(s) /ADRIANE 07/09/2020 1940 Local . 02 Pathologist provided ICD-10: D12.6 . 02 CPT . 051759, [id number] Performed at: 01 [facility] [address] [id number] MD Calixto Bettencourt MD Phone: [phone] Performed at: 02 [facility] [address] [place], [place] [id number] MD Morena Mays MD Phone: [phone]
[2020-07-08 12:25] VITALS: BP 151/91; PULSE 88; RESP 16; TEMP 36.4; O2SAT 99
[2020-07-08 12:28] VITALS: BMI 23.1
--- NOTE | 2020-07-08 12:51 | PM.PREOP ---
Pre-operative Note COVID-19 COVID-19 status: Negative Result date/Date tested (Pos, Neg/Pending): 07/07/20 Interval Note History & Physical reviewed/Exam performed by Physician: Yes Changes to H&P: No H&P completed within 30 days and has changed as indicated here:: Held coumadin. INR is 1.2 today. ASA Class (for procedural sedation): II
[2020-07-08] MEDS: MIDAZOLAM 5 MG/5 ML VIAL IV (12:55)
[2020-07-08] MEDS: fentaNYL 250 MCG/5 ML INJ IV (12:56)
--- NOTE | 2020-07-08 12:57 | P.OP.ENDO_ITS ---
Operative Date/Time/Diagnoses Date of procedure: 07/08/20 Time of procedure: 12:57 Pre-op diagnosis: Change in bowel habit, ten years since last colonoscopy Procedure & Clinicians Study performed: Colonoscopy Procedural sedation performed by the endoscopist Same procedure as scheduled: Yes Indications: Change in bowel habits, ten years since last colonoscopy Surgeon: Irasema Kendall Procedure Notes SCOAP/Timeout: Performed Procedure in detail: The patient was brought to the room and placed in left lateral decubitus position with all bony prominences padded. A time-out was performed and then the patient was given procedural sedation starting with [4] mg of Versed and [100] mcg of fentanyl. Vitals were monitored throughout the procedure and remained stable. Once adequately sedated, the procedure was begun. A rectal exam was performed revealing [no abnormalities]. The colonoscope was then introduced to the rectum and advanced to the cecum in the usual fashion. The colon was quite tortuous, but we were able to reach it after using stiffener, and anterior abdominal wall pressure. []The cecum was identified by the appendiceal orifice, the mucosal tri-fold, and the ileocecal valve. The scope was then retracted while rotating side to side and examining each mucosal fold. Random biopsies were taken to rule out microscopic colitis. We removed polyp at 110 cm which was very benign appearing. There was moderate diverticulosis throughout the descending and sigmoid colon, with no evidence of diverticulitis. [] At the conclusion of the procedure retroflexion was performed and [moderate grade 2-3 internal hemorrhoids without stigmata of bleeding were seen]. The scope was then withdrawn from the rectum the procedure was concluded. The patient tolerated the procedure well and was transferred to the PACU in stable condition. Scope withdrawal time: 14 Sedation minutes: 34 Findings: diverticulosis Specimen(s): other (Random biopsies throughout the colon, polypectomy at 110 cm) Complications: none Impression: Multiple diverticula, no significant diverticulitis, 1 small polyp, moderate diverticular Post-procedure Recommendations: Colonscopy in 10 years (Depending on pathology result) and Ot her recommendation (Will contact patient with pathology results) Follow up: as needed Disposition: PACU
[2020-07-08 13:33] VITALS: BP 139/87; PULSE 69; RESP 12; TEMP 36.8; O2SAT 100
[2020-07-08 13:38] VITALS: BP 149/86; PULSE 70; RESP 13; O2SAT 100
[2020-07-08 13:43] VITALS: BP 143/92; PULSE 72; RESP 11; O2SAT 100
[2020-07-08 13:48] VITALS: BP 139/89; PULSE 71; RESP 14; O2SAT 99
[2020-07-08 13:49] VITALS: BP 139/85; PULSE 70; RESP 8; TEMP 37.1; O2SAT 100
== END 2020-07-08 13:56 | disposition home or self-care (01) ==
PROVIDERS: Family Provider Family Medicine; PCP Family Medicine; Referring Provider Surgery; Visit Provider Surgery
PROC: 0DJD8ZZ Inspection of Lower Intestinal Tract, Via Natural or Artificial Opening Endoscopic (ICD-10-PCS; CPT 45378; principal; 2020-07-08 13:00)
DX: R19.4 Change in bowel habit (principal); I48.91 Unspecified atrial fibrillation; Z95.0 Presence of cardiac pacemaker; Z79.01 Long term (current) use of anticoagulants; K64.1 Second degree hemorrhoids; D12.6 Benign neoplasm of colon, unspecified
CPT/HCPCS: 45380; 85610; 99152; 99153; J2250; J3010

== ENCOUNTER → 2020-09-02 08:00 | Outpatient (CLI) | payer MEDICARE, SELFPAY ==
[2020-09-02 12:47] LABS: COVID19 -Nasal RAPID Negative (Negative)
== END ==
PROVIDERS: Family Provider Family Medicine; PCP Family Medicine; Visit Provider Physical Medicine & Rehabilitation
DX: Z20.822 Contact with and (suspected) exposure to COVID-19 (principal)
CPT/HCPCS: 87635; C9803

== ENCOUNTER 2020-09-04 09:38 | Outpatient (CLI) | payer MEDICARE, SELFPAY ==
[2020-09-04] VITALS (8 sets, daily range): BP systolic 142–165; BP diastolic 65–97; PULSE 69–88; RESP 10–20; TEMP 36.2; O2SAT 94–100
--- NOTE | 2020-09-04 09:41 | DI.RAD.S_ITS ---
PROCEDURE: PAIN L/S FACET INJ/BLK 1ST TERRI COMPARISON: [facility], CT, CT LUMBAR SPINE WO CON, 07/24/2019, 8:28. [facility], CR, XR LUMBAR SPINE MIN 4V, 07/24/2019, 7:38. INDICATIONS: SPONDYLOSIS FINDINGS: 6 intraoperative fluoroscopy images demonstrate needle placement at L4-L5 and L5-S1 facet joints bilaterally. IMPRESSION: Fluoroscopy for pain management. Dictated by: Matheus Stringer M.D. on 09/04/2020 at 11:56 Approved by: Matheus Stringer M.D. on 09/04/2020 at 11:56
[2020-09-04] MEDS: MIDAZOLAM 5 MG/5 ML VIAL IV (10:45)
[2020-09-04] MEDS: fentaNYL 100 MCG/2 ML INJ 50 MCG IV (10:45)
[2020-09-04] MEDS: IOPAMIDOL 15 ML VIAL 3 ML INJ (10:46)
[2020-09-04] MEDS: BETAMETHASONE 30 MG/5 ML MDV 12 MG INJ (10:47)
--- NOTE | 2020-09-04 10:58 | P.PCN_ITS ---
Date/Time/Diagnoses Date of procedure: 09/04/20 Time of procedure: 10:58 Pre-procedure diagnosis: 1. FACET ARTHROPATHY 2. AXIAL LBP 3. MULTILEVEL DDD Post-procedure diagnosis: same Procedure Notes Procedure: 1. FLUOROSCOPICALLY GUIDED CONTRAST CONTROLLED FACET JOINT INJECTIONS BILATERAL L4/5, L5/S1 Indications: Loi is referred by Dr. Caballero for treatment of Axial LBP Physician: Vishal Wilkins Total Fluoroscopy time (seconds): 10 Total sedation minutes: 10 Complications: none Procedure in detail & Post-procedure care: FINDINGS Multilevel Facet Arthropathy with Clinically significant axial LBP DESCRIPTION OF PROCEDURE Fluoroscopically guided, contrast-controlled bilateral L4/5, L5/S1 facet joint injections. Following review of allergy and review of potential side effects and complications, including, but not necessarily limited to, infection, allergic reaction, local tissue breakdown, stroke, temporary or permanent nerve injury, paralysis, and possible , the patient indicated that the patient understood and agreed to proceed. An informed consent document was signed by the patient, witnessed by a nurse, and placed in the patient's chart. Additionally, other treatment options including medications, modalities, and physical therapy were reviewed with the patient. After review of previous anaesthesic history and IV conscious sedation the patient was deemed safe to proceed with today?s procedure with IV conscious sedation as ASA class II designation. Safety time-out was performed to confirm patient ID, procedure to be performed and site of procedure. IV sedation was accomplished with a combination of 3mg of Versed and 50mcg of Fentanyl was administered by the RN after DO order, titrated to patient comfort during the course of the procedure while the patient remained responsive to all verbal commands In the prone position, following sterile prep and drape of the lumbar region, the posterior aspect of the L4/5, L5/S1 facet joints were identified fluoroscopically. The skin was anesthetized via a 25-gauge 1.5inch needle with 1% lidocaine solution into the corresponding facet joints. At this point, a 22- gauge 3.5-inch spinal needle was atraumatically introduced and advanced under fluoroscopic guidance into the corresponding facet joints. Following negative aspiration, injections of approximately 0.2cc of Isovue 200 confirmed interar ticular placement without vascular uptake. The identical procedure was then performed at the L4/5, L5/S1 facet joints on the left. Radiological data, including multiple fluoroscopic views of the lumbosacral spine, reveal a spinal needle at the L4/5, L5/S1 facet joints bilaterally. Subsequent views show flow of contrast material both superiorly and inferiorly within the joint space without vascular or intrathecal uptake. At this point, a total of 0.5cc including a mixture of 0.25cc Marcaine and 0.25cc betamethasone was injected without complication into each of the corresponding facet joints. The patient tolerated the procedure well without signs or symptoms of complications prior to transfer to the recovery area continued monitoring without incident. The patient was then transferred to the recovery area where they were observed for an appropriate period of time after the injection. The patient reported a VAS score of 7 prior to the procedure and a post- procedure VAS of 0. POST OP INSTRUCTIONS The patient was provided a Pain Log to continue to record their response to the target-specific procedure prior to follow-up visit with their referring physician. Additionally, specific post-injection care instructions and a contact number to our office were provided if concerns arise regarding possible complications associated with the procedure are suspected.
== END 2020-09-04 11:23 | disposition home or self-care (01) ==
LOC: RAD 09:39
PROVIDERS: Family Provider Family Medicine; PCP Family Medicine; Referring Provider Physical Medicine & Rehabilitation; Visit Provider Physical Medicine & Rehabilitation
DX: M47.817 Spondylosis without myelopathy or radiculopathy, lumbosacral region (principal); M47.816 Spondylosis without myelopathy or radiculopathy, lumbar region; M51.36 Other intervertebral disc degeneration, lumbar region; M51.37 Other intervertebral disc degeneration, lumbosacral region; M54.5 Low back pain
CPT/HCPCS: 64493; 64494; 99152; J0702; J2250; J3010

== ENCOUNTER → 2020-10-07 08:55 | Outpatient (ROUT) | payer MEDICARE, SELFPAY ==
[2020-10-07 09:24] LABS: INR 2.9 (0.9-1.3); Prothrombin Time 33.2 SECONDS (10.1-12.7)
== END ==
PROVIDERS: Family Provider Family Medicine; PCP Family Medicine; Visit Provider Family Medicine
DX: I48.91 Unspecified atrial fibrillation (principal); Z95.0 Presence of cardiac pacemaker
CPT/HCPCS: 85610

== ENCOUNTER → 2020-10-27 10:33 | Outpatient (CLI) | payer MEDICARE, SELFPAY ==
[2020-10-27 15:59] LABS: COVID19 -Nasal RAPID Negative (Negative)
== END ==
PROVIDERS: Family Provider Family Medicine; PCP Family Medicine; Visit Provider Physical Medicine & Rehabilitation
DX: Z20.822 Contact with and (suspected) exposure to COVID-19 (principal)
CPT/HCPCS: 87635; C9803

== ENCOUNTER 2020-10-28 15:08 | Outpatient (CLI) | payer MEDICARE, SELFPAY ==
[2020-10-28] VITALS (8 sets, daily range): BP systolic 112–138; BP diastolic 62–89; PULSE 70–84; RESP 10–16; TEMP 36.3; O2SAT 95–100
--- NOTE | 2020-10-28 15:11 | DI.RAD.S_ITS ---
PROCEDURE: PAIN L/S FACET INJ/BLK 1ST TERRI COMPARISON: [facility], CR, XR LUMBAR SPINE MIN 4V, 07/24/2019, 7:38. [facility], CT, CT LUMBAR SPINE WO CON, 07/24/2019, 8:28. [facility], XA, PAIN L/S FACET INJ/BLK 1ST TERRI, 09/04/2020, 10:48. INDICATIONS: SPONDYLOSIS FINDINGS: 6 intraoperative fluoroscopy images demonstrate needle placement in lumbar spine at L4, L5 and S1 bilaterally. IMPRESSION: Fluoroscopy for pain management. Dictated by: Matheus Stringer M.D. on 10/28/2020 at 17:51 Approved by: Matheus Stringer M.D. on 10/28/2020 at 17:54
[2020-10-28] MEDS: MIDAZOLAM 5 MG/5 ML VIAL IV (16:05)
[2020-10-28] MEDS: fentaNYL 100 MCG/2 ML INJ 50 MCG IV (16:05)
[2020-10-28] MEDS: IOPAMIDOL 15 ML VIAL 3 ML INJ (16:20)
[2020-10-28] MEDS: BUPIVACAINE 0.5% (PF) VIAL 5 ML INJ (16:20)
--- NOTE | 2020-10-28 16:23 | PM.PROC.IR.1 ---
Date/Time/Diagnoses Date of procedure: 10/28/20 Time of procedure: 16:23 Pre-procedure diagnosis: 1. FACET ARTHROPATHY Post-procedure diagnosis: same Procedure Notes Procedure: 1. BILATERAL- L4, L5 and S1 DIAGNOSTIC MB BLOCKS with LA Anesthetic Indications: Loi is referred by Dr. Caballero for treatment of Bilateral Axial LBP. Physician: Vishal Wilkins Total Fluoroscopy time (seconds): 10 Total sedation minutes: 14 Complications: none Procedure in detail & Post-procedure care: DESCRIPTION OF PROCEDURE Fluoroscopically guided, contrast-controlled bilateral L4, L5 and S1 medial branch blocks with 0.5cc of 0.5% Marcaine. Following review of allergy and review of potential side effects and complications, including, but not necessarily limited to, infection, allergic reaction, local tissue breakdown, nerve injury, paralysis, stroke and possible , the patient indicated that the patient understood and agreed to proceed. An informed consent document was signed by the patient, witnessed by a nurse, and placed in the patient's chart. After review of previous anaesthesic history and IV conscious sedation the patient was deemed safe to proceed with today's procedure with IV conscious sedation as ASA class II designation. Safety time-out was performed to confirm patient ID, procedure to be performed and site of procedure. IV sedation was accomplished with a combination of 3mg of Versed and 50mcg of Fentanyl was administered by the RN after DO order, titrated to patient comfort during the course of the procedure while the patient remained responsive to all verbal commands In the prone position, following sterile prep and drape of the lumbar region, the right L4, L5 and S1 anatomical location of the medial branch of the dorsal ramus was identified fluoroscopically. Subsequently an anesthetic skin wheal using 1% lidocaine solution was initiated at each of the anatomical spots. Subsequently then a 22-gauge 3.5-inch spinal needle was atraumatically introduced and advanced under fluoroscopic guidance at each of the corresponding sites at the right L4, L5 and S1 MB. After negative aspiration, 0.2cc of Isovue 200 was injected, confirming placement without vascular or intrathecal uptake. Subsequently then 0.5cc of 0.5% Marcaine solution was injected at each of the corresponding sites at the right L4, L5 and S1 medial branch locations. The identical procedure was replicated on the left. The patient tolerated the procedure well without signs or symptoms of complications prior to transfer to the recovery area continued monitoring without incident. Post-procedure, the patient was monitored initiating provocative activities to measure the amount of relief from block of the facetogenic pain. The patient reported a VAS of 7 prior to the procedure and a post-procedure VAS of 1. It has been a pleasure to assist in the diagnostic and therapeutic care of your patient. POST OP INSTRUCTIONS The patient was provided with a Pain Log to complete over the next several hours and subsequent days prior to the patient's follow up with the ordering physician. If the patient has field education director relief to the solution applied, then they may be a candidate for medial branch rhizotomy. The patient is aware, was provided, once again, with a Pain Log and will follow up with the referring physician for review and clinical correlation
[2020-10-28] MEDS: LIDOCAINE 1% 20 ML 10 ML INJ (16:27)
== END 2020-10-28 16:40 | disposition home or self-care (01) ==
PROVIDERS: Family Provider Family Medicine; PCP Family Medicine; Referring Provider Physical Medicine & Rehabilitation; Visit Provider Physical Medicine & Rehabilitation
DX: M47.817 Spondylosis without myelopathy or radiculopathy, lumbosacral region (principal)
CPT/HCPCS: 64493; 64494; 99152; J2250; J3010

== ENCOUNTER → 2020-11-26 08:37 | Outpatient (ROUT) | payer MEDICARE, SELFPAY ==
[2020-11-26 08:49] LABS: Prothrombin Time 34.7 SECONDS (10.1-12.7)
== END ==
PROVIDERS: Family Provider Family Medicine; PCP Family Medicine; Visit Provider Family Medicine
DX: I48.91 Unspecified atrial fibrillation (principal); Z95.0 Presence of cardiac pacemaker
CPT/HCPCS: 85610

== ENCOUNTER → 2020-12-03 10:07 | Outpatient (ROUT) | payer MEDICARE, SELFPAY ==
[2020-12-03 10:15] LABS: INR 1.5 (0.9-1.3); Prothrombin Time 17.5 SECONDS (10.1-12.7)
== END ==
PROVIDERS: Family Provider Family Medicine; PCP Family Medicine; Visit Provider Family Medicine
DX: I48.91 Unspecified atrial fibrillation (principal); Z95.0 Presence of cardiac pacemaker
CPT/HCPCS: 85610

== ENCOUNTER → 2020-12-10 08:34 | Outpatient (ROUT) | payer MEDICARE, SELFPAY ==
[2020-12-10 08:40] LABS: Prothrombin Time 22.3 SECONDS (10.1-12.7)
== END ==
PROVIDERS: Family Provider Family Medicine; PCP Family Medicine; Visit Provider Family Medicine
DX: I48.91 Unspecified atrial fibrillation (principal); Z95.0 Presence of cardiac pacemaker
CPT/HCPCS: 85610

== ENCOUNTER → 2021-06-01 08:46 | Outpatient (ROUT) | payer MEDICARE, SELFPAY ==
[2021-06-01 08:54] LABS: INR 2.7 (0.9-1.3); Prothrombin Time 30.9 SECONDS (10.1-12.7)
== END ==
PROVIDERS: Family Provider Family Medicine; PCP Family Medicine; Visit Provider Family Medicine
DX: I48.91 Unspecified atrial fibrillation (principal); Z95.0 Presence of cardiac pacemaker
CPT/HCPCS: 85610

== ENCOUNTER → 2021-07-01 09:37 | Outpatient (ROUT) | payer MEDICARE, SELFPAY ==
[2021-07-01 10:01] LABS: INR 2.7 (0.9-1.3); Prothrombin Time 31.4 SECONDS (10.1-12.7)
== END ==
PROVIDERS: Family Provider Family Medicine; PCP Family Medicine; Visit Provider Family Medicine
DX: I48.91 Unspecified atrial fibrillation (principal); Z95.0 Presence of cardiac pacemaker
CPT/HCPCS: 85610

== ENCOUNTER → 2021-08-05 10:05 | Outpatient (ROUT) | payer MEDICARE, SELFPAY ==
[2021-08-05 10:23] LABS: INR 2.2 (0.9-1.3); Prothrombin Time 24.9 SECONDS (10.1-12.7)
== END ==
PROVIDERS: Family Provider Family Medicine; PCP Family Medicine; Visit Provider Family Medicine
DX: I48.91 Unspecified atrial fibrillation (principal)
CPT/HCPCS: 85610

== ENCOUNTER → 2021-08-20 09:29 | Outpatient (CLI) | payer MEDICARE, SELFPAY ==
--- NOTE | 2021-08-20 09:31 | DI.ECHO.S_ITS ---
[facility] +---------+ : : [address] : [place] : : : : [id number] : : : : Phone: [phone]+ Echocardiogram Report + + :Name: CONNER ARIAS Study Date: 08/20/2021 Height: 73 in : :[facility] ReadingLocation: Weight: 175 lb : : Gender: Male BSA: 2.0 m2 : :: 1940 Age: 80 yrs BP: 120/83 mmHg: :Reason For Study: Mitral Valve- Regurgitation : :Ordering Physician: AMANDEEP, : :MYRON Performed By: Barber Bravo : :Referring: MYRON BERNSTEIN : + + Interpretation Summary The left ventricle is normal in size and wall thickness. The ejection fraction is estimated to be 45-50%. Previous LV ejection fraction 40 to 45%. Left ventricular systolic function has mildly improved compared to the previous exam. Base of the RV mild to moderately dilated. The right ventricular systolic function is normal. There is a pacemaker lead in the right ventricle. There is moderate mitral regurgitation. Compared to the prior echo study, there has been no change in the severity of mitral regurgitation. The tricuspid annulus is dilated. There is moderate tricuspid regurgitation. Previously moderate to severe TR. The right ventricular systolic pressure is estimated to be at least 26 mmHg based on an estimated right atrial pressure of 3 mm Hg. Procedure: A two-dimensional transthoracic echocardiogram with color flow and Doppler was performed. The study quality was technically adequate. Comparison is made with the echocardiogram of 11/20/2018. The patient has a paced rhythm. Left Ventricle: The left ventricle is normal in size and wall thickness. This is Decreased compared to the previous study. There is no thrombus. Left ventricular systolic function is mildly reduced. The ejection fraction is estimated to be 45-50%. Left ventricular systolic function has mildly improved compared to the previous exam. Apical wall motion abnormality may reflect pacemaker activation. There is septal wall hypokinesis. Diastolic function could not be accurately assessed due to paced rhythm. Right Ventricle: Base of the RV mild to moderately dilated. There is a pacemaker lead in the right ventricle. The right ventricular systolic function is normal. Atria: Both atria are severely dilated. Both atria have remained unchanged in size since the prior echo exam. The interatrial septum grossly appears intact with no obvious evidence for an atrial septal defect. Mitral Valve: The mitral valve leaflets appear mildly thickened, but open well. There is moderate mitral regurgitation. Compared to the prior echo study, there has been no change in the severity of mitral regurgitation. Aortic Valve: The aortic valve is mildly calcified. The aortic valve is trileaflet. There is no aortic valve stenosis. No aortic regurgitation is present. Tricuspid Valve: The tricuspid annulus is dilated. There is moderate tricuspid regurgitation. The right ventricular systolic pressure is estimated to be at least 26 mmHg based on an estimated right atrial pressure of 3 mm Hg. Pulmonic Valve: The pulmonic valve leaflets appear thickened, but open well. There is mild to moderate pulmonic regurgitation. Great Vessels: The aortic root is normal size. The dimensions of the ascending aorta are normal. The IVC is of normal diameter and collapses greater than 50% with a sniff. This suggests a low right atrial pressure of 3 mm Hg. Pericardium/ Pleura There is no pericardial effusion. There is no pleural effusion. MMode/2D Measurements & Calculations LVIDd: 5.4 cm LVOT diam: 2.0 cm LVIDs: 3.7 cm Ao root diam: 3.3 cm FS: 31.5 % asc Aorta Diam: 3.1 cm IVSd: 0.90 cm LVPWd: 0.80 cm LV schmitt. diameter/BSA (cm/m^2): 2.7 LV sys. diameter/BSA (cm/m^2): 1.8 LA dimension: 3.7 cm RA long axis: 6.9 cm LA A2 area: 25.8 cm2 IVC diam: 2.1 cm LA A4 area: 28.4 cm2 LA length (vol): 6.2 cm LA vol: 100.5 ml LA vol index: 49.4 ml/m2 LVLs ap4: 6.2 cm LVLd ap2: 6.6 cm LVLs ap2: 6.1 cm TAPSE_phl: 2.1 cm Doppler Measurements & Calculations Ao V2 max: 128.0 cm/sec LVOT Max Nagi: 95.3 cm/sec Ao V2 mean: 87.5 cm/sec LV V1 max P.6 mmHg Ao max P.0 mmHg LV V1 VTI: 17.5 cm Ao mean P.0 mmHg RONALDO(I,D): 2.4 cm2 Ao V2 VTI: 22.9 cm RONALDO(V,D): 2.3 cm2 sev ratio: 0.76 RONALDO indexed to BSA (cm^2/m^2): 1.2 TR max nagi: 239.0 cm/sec SV(LVOT): 55.0 ml TR max P.8 mmHg AV VR_phl: 0.74 RONALDO(VTI)/BSA_phl: 1.2 Reading Physician:03:27 PM
[2021-08-20 10:55] LABS: COVID19 -Nasal RAPID Negative (Negative)
--- NOTE | 2021-08-20 21:07 | DI.NM.S_ITS ---
DATE OF SERVICE: 08/20/2021 PROCEDURE PERFORMED: Pharmacological perfusion study. INDICATION: Underlying left ventricular function with complete heart block, chronic AFib. Perfusion study being done for CAD risk stratification and diagnosis. RADIOPHARMACEUTICAL: 26.4 millicurie technetium-99m Myoview IV was injected at stress and 12.2 millicurie technetium-99m Myoview IV was injected at rest. CARDIAC STRESS: The patient underwent pharmacological perfusion study under the supervision of an attending staff, as per standard [facility] protocol. The patient remained hemodynamically stable. Baseline blood pressure 120/80. No chest pain. Baseline rhythm was ventricular paced rhythm. During stress, no new convincing ischemic changes seen. The patient remained hemodynamically stable. Had minimal dyspnea. RAW DATA: There is increased subdiaphragmatic activity. GATED STUDY: Stress LV ejection fraction appears to be 60 percent without any significant wall motion abnormalities. Resting end-diastolic volume 113 mL. TID ratio 1.16, which is within normal limits. Lung/heart ratio 0.30, which is within normal limits. MYOCARDIAL PERFUSION SCAN: Stress supine, resting supine and stress prone images were compared to each other. Stress supine and resting supine images revealed large size, moderately decreased perfusion of inferior wall extending into the inferoapex, as well as inferoseptum, which got significantly improved during the stress prone images. However, stress prone images remaining have mildly decreased perfusion of inferoseptum and inferoapex. Overall, inferior wall has significant improvement. No reversible ischemia. CONCLUSION: 1. No obvious reversible ischemia. 2. There is a significant improvement in inferior wall, inferoapex and inferoseptal defect, which was seen during stress supine and resting supine images and improved with the stress prone images. Likely, this is due to tissue attenuation artifact. Also, a component due to pacemaker. There was increased subdiaphragmatic activity. The stress left ventricular ejection fraction is 60 percent without any significant wall motion abnormalities, which goes against the diagnosis of previous transmural myocardial infarction. Likely this is a normal myocardial perfusion study, as isolated inferoseptal defect with improvement in inferior wall goes against the diagnosis of right coronary artery territory infarction. No transient ischemic dilatation. Overall low-risk myocardial perfusion study. Loi Dyer - ANUSHKA/isaiah/rosamaria doc#: [id number]/job#: [id number] dd: 08/20/2021 16:54:00 dt: 08/20/2021 20:45:00 DICTATING MD/COPIES TO: Abraham Durbin MD COPIES MNE: JEFRY;
== END ==
PROVIDERS: Family Provider Family Medicine; PCP Family Medicine; Referring Provider Internal Medicine Cardiovascular Disease; Visit Provider Internal Medicine Cardiovascular Disease
DX: I08.1 Rheumatic disorders of both mitral and tricuspid valves (principal); I44.2 Atrioventricular block, complete; I48.20 Chronic atrial fibrillation, unspecified; E78.5 Hyperlipidemia, unspecified; Z95.0 Presence of cardiac pacemaker
CPT/HCPCS: 78452; 87635; 93017; 93306; A9502; J2785

== ENCOUNTER → 2021-09-14 10:06 | Outpatient (ROUT) | payer MEDICARE, SELFPAY ==
[2021-09-14 10:14] LABS: INR 3.1 (0.9-1.3)
== END ==
PROVIDERS: Family Provider Family Medicine; PCP Family Medicine; Visit Provider Family Medicine
DX: I48.91 Unspecified atrial fibrillation (principal); Z95.0 Presence of cardiac pacemaker
CPT/HCPCS: 85610

== ENCOUNTER → 2021-09-21 09:55 | Outpatient (ROUT) | payer MEDICARE, SELFPAY ==
[2021-09-21 10:06] LABS: INR 3.4 (0.9-1.3); Prothrombin Time 38.6 SECONDS (10.1-12.7)
== END ==
PROVIDERS: Family Provider Family Medicine; PCP Family Medicine; Visit Provider Family Medicine
DX: Z98.0 Intestinal bypass and anastomosis status (principal); I48.91 Unspecified atrial fibrillation
CPT/HCPCS: 85610

== ENCOUNTER → 2021-10-05 08:33 | Outpatient (ROUT) | payer MEDICARE, SELFPAY ==
[2021-10-05 08:45] LABS: INR 2.5 (0.9-1.3); Prothrombin Time 28.7 SECONDS (10.1-12.7)
== END ==
PROVIDERS: Family Provider Family Medicine; PCP Family Medicine; Visit Provider Family Medicine
DX: I48.91 Unspecified atrial fibrillation (principal)
CPT/HCPCS: 85610

== ENCOUNTER → 2021-11-25 08:16 | Outpatient (ROUT) | payer MEDICARE, SELFPAY ==
[2021-11-25 08:30] LABS: Prothrombin Time 23.1 SECONDS (10.1-12.7)
== END ==
PROVIDERS: Family Provider Family Medicine; PCP Family Medicine; Visit Provider Family Medicine
DX: Z79.01 Long term (current) use of anticoagulants (principal)
CPT/HCPCS: 85610

== ENCOUNTER → 2022-06-22 09:07 | Outpatient (ROUT) | payer MEDICARE, SELFPAY ==
[2022-06-22 09:21] LABS: INR 2.1 (0.9-1.3)
== END ==
PROVIDERS: Family Provider Family Medicine; PCP Family Medicine; Visit Provider Family Medicine
DX: Z79.01 Long term (current) use of anticoagulants (principal)
CPT/HCPCS: 85610

== ENCOUNTER → 2022-06-22 10:03 | Outpatient (CLI) | payer MEDICARE, SELFPAY ==
--- NOTE | 2022-06-22 | DI.RAD.S_ITS ---
PROCEDURE: XR SHOULDER LT MIN 2V INDICATIONS: Pain in left shoulder TECHNIQUE: 3 views of the shoulder were acquired. COMPARISON: None. FINDINGS: Bones: No fractures or dislocations. No suspicious bony lesions. Visualized ribs appear intact. Moderate AC joint hypertrophy. Soft tissues: No suspicious soft tissue calcifications. Left chest pacemaker. IMPRESSION: No acute osseous abnormality. If symptoms persist, follow-up radiographs and/or CT or MRI may be helpful for further evaluation. Dictated by: Garret Valenzuela M.D. on 06/22/2022 at 15:19 Approved by: Garret Valenzuela M.D. on 06/22/2022 at 15:22
== END ==
PROVIDERS: Family Provider Family Medicine; PCP Family Medicine; Referring Provider Family Medicine; Visit Provider Family Medicine
DX: M25.512 Pain in left shoulder (principal); Z79.01 Long term (current) use of anticoagulants; Z95.0 Presence of cardiac pacemaker
CPT/HCPCS: 73030; 85610

== ENCOUNTER → 2022-07-15 07:55 | Outpatient (ROUT) | payer MEDICARE, SELFPAY ==
[2022-07-15 08:16] LABS: INR 2.2 (0.9-1.3); Prothrombin Time 25.7 SECONDS (10.1-12.7)
== END ==
PROVIDERS: Family Provider Family Medicine; PCP Family Medicine; Visit Provider Family Medicine
DX: Z79.01 Long term (current) use of anticoagulants (principal)
CPT/HCPCS: 85610

== ENCOUNTER → 2022-09-13 08:36 | Outpatient (CLI) | payer MEDICARE, SELFPAY ==
--- NOTE | 2022-09-13 08:37 | DI.RAD.S_ITS ---
PROCEDURE: XR CHEST 2V INDICATIONS: cough TECHNIQUE: 2 views of the chest were acquired. COMPARISON: None. FINDINGS: Surgical changes and devices: There is a cardiac pacemaker in expected position. Lungs and pleura: Lungs are clear. No pleural effusions or pneumothorax. Mediastinum: Mediastinal contours are normal. Heart size is normal. Bones and chest wall: No suspicious bony abnormalities. Soft tissues appear unremarkable. IMPRESSION: No acute cardiopulmonary disease. Dictated by: Matheus Stringer M.D. on 09/13/2022 at 10:19 Approved by: Matheus Stringer M.D. on 09/13/2022 at 10:20
== END ==
PROVIDERS: Family Provider Family Medicine; PCP Family Medicine; Referring Provider Nurse Practitioner Family; Visit Provider Nurse Practitioner Family
DX: R05.9 Cough, unspecified (principal)
CPT/HCPCS: 71046

== ENCOUNTER → 2022-09-15 09:37 | Outpatient (ROUT) | payer MEDICARE, SELFPAY ==
[2022-09-15 09:50] LABS: INR 1.4 (0.9-1.3); Prothrombin Time 15.9 SECONDS (10.1-12.7)
== END ==
PROVIDERS: Family Provider Family Medicine; PCP Family Medicine; Visit Provider Family Medicine
DX: Z79.01 Long term (current) use of anticoagulants (principal)
CPT/HCPCS: 85610

== ENCOUNTER → 2022-09-20 15:23 | Outpatient (CLI) | payer MEDICARE, SELFPAY ==
--- NOTE | 2022-09-20 | DI.RAD.S_ITS ---
PROCEDURE: XR CHEST 2V INDICATIONS: Acute cough TECHNIQUE: 2 views of the chest were acquired. COMPARISON: [facility], CR, XR CHEST 2V, 09/13/2022, 8:34. FINDINGS: Surgical changes and devices: Pacemaker Lungs and pleura: Lungs are clear. No pleural effusions or pneumothorax. Mediastinum: Mediastinal contours are normal. Heart size is normal. Bones and chest wall: No suspicious bony abnormalities. Soft tissues appear unremarkable. IMPRESSION: No evidence acute pulmonary process. Dictated by: Jesu Augustine M.D. on 09/20/2022 at 17:53 Approved by: Jesu Augustine M.D. on 09/20/2022 at 17:54
== END ==
PROVIDERS: Family Provider Family Medicine; PCP Family Medicine; Referring Provider Family Medicine; Visit Provider Family Medicine
DX: R05.1 Acute cough (principal)
CPT/HCPCS: 71046

== ENCOUNTER → 2022-10-06 08:03 | Outpatient (ROUT) | payer MEDICARE, SELFPAY ==
[2022-10-06 08:21] LABS: INR 2.6 (0.9-1.3); Prothrombin Time 29.9 SECONDS (10.1-12.7)
== END ==
PROVIDERS: Family Provider Family Medicine; PCP Family Medicine; Visit Provider Family Medicine
DX: I48.91 Unspecified atrial fibrillation (principal)
CPT/HCPCS: 85610

== ENCOUNTER 2022-10-10 17:30 | Emergency (ER) | payer MEDICARE, SELFPAY ==
[2022-10-10 17:40] VITALS: BP 158/81; PULSE 67; RESP 18; TEMP 36.6; O2SAT 97; BMI 24.8
--- NOTE | 2022-10-10 17:46 | DI.RAD.S_ITS ---
PROCEDURE: XR SHOULDER LT MIN 2V INDICATIONS: injury. shoulder popped while lifting wood TECHNIQUE: 3 views of the shoulder were acquired. COMPARISON: [facility], CR, XR CHEST 2V, 09/20/2022, 15:35. [facility], CR, XR SHOULDER LT MIN 2V, 06/22/2022, 10:19. FINDINGS: Bones: No fractures or dislocations. No suspicious bony lesions. Visualized ribs appear intact. Degenerative changes are seen, with mild subacromial spurring. Soft tissues: No suspicious soft tissue calcifications. There is a left-sided pacer device seen. The visualized lung demonstrates an unremarkable appearance. Atherosclerotic calcification of the aortic arch is noted. IMPRESSION: Mild degenerative changes are seen by plain film, without an acute bony abnormality seen. Dictated by: Jose Guadalupe Bright M.D. on 10/10/2022 at 17:36 Approved by: Jose Guadalupe Bright M.D. on 10/10/2022 at 17:37
--- NOTE | 2022-10-10 19:20 | ED.UPPEXIN ---
HPI - Extremity Injury (Upper) General Chief Complaint: Extremity Injury, Upper Stated Complaint: Shoulder pain, Popped Time Seen by Provider: 10/10/22 19:05 Source: patient and family Mode of arrival: Family Vehicle Limitations: no limitations History of Present Illness HPI narrative: 82-year-old male who presents with complaint of left shoulder pain. Patient was lifting a board off of work station bench he states it was not particularly heavy and he felt pop in his shoulder and has had pain ever since and can not move his shoulder secondary to pain. He states any sort of pain is quite uncomfortable. He states it is somewhat painful to move his lower arm but he can. Patient states he is had issues with his shoulder and popping in the past but never had pain with it. Patient states this happened earlier today. He has not appreciate any swelling. No numbness or tingling or weakness. Patient denies any other injuries. He was recently prescribed steroids which he has been taking for some sciatica. Patient is anticoagulated on Coumadin. He tried Tylenol at home it was not very helpful. He has been icing it. He denies any other issues currently. Related Data Home Medications Medication Instructions Recorded Confirmed finasteride 5 mg tablet 5 mg PO DAILY 07/11/17 10/24/20 gabapentin 600 mg tablet 600 mg PO TID 07/11/17 10/24/20 tamsulosin 0.4 mg capsule 0.4 mg PO DAILY 07/11/17 10/24/20 atorvastatin 40 mg tablet 40 mg PO DAILY 11/17/17 10/24/20 tizanidine 2 mg tablet 2 mg PO TID PRN muscle spasticity 07/18/19 10/24/20 warfarin 5 mg tablet 5 mg PO DAILY 07/18/19 10/24/20 nortriptyline 25 mg capsule 25 mg PO BEDTIME 09/26/19 10/24/20 trazodone 100 mg tablet 100 mg PO BEDTIME PRN 08/08/20 10/24/20 Previous Rx's Medication Instructions Recorded valacyclovir 1 gram tablet 1,000 mg PO TID #21 tabs 06/15/20 benzonatate 100 mg capsule 100 mg PO BID PRN cough #20 caps 09/13/22 hydrocodone 5 mg-acetaminophen 325 1 tab PO Q6H PRN pain #10 tabs 10/10/22 mg tablet Allergies Allergy/AdvReac Type Severity Reaction Status Date / Time Penicillins Allergy Severe Rash Verified 10/10/22 17:46 tetracycline Allergy Severe Rash Verified 10/10/22 17:46 articaine [From Septocaine] Allergy Intermediate Burning Verified 10/10/22 17:46 Mouth Syndrome epinephrine [From Septocaine] Allergy Intermediate Burning Verified 10/10/22 17:46 Mouth Syndrome Sulfa (Sulfonamide Allergy Mild Rash Verified 10/10/22 17:46 Antibiotics) Review of Systems Review of Systems ROS Unobtainable: All systems reviewed & are unremarkable except as noted in HPI and below Patient History Medical History Arthritis Arthropathy of lumbosacral facet joint Headache Lumbosacral spondylosis with radiculopathy Pacemaker Surgical History H/O knee surgery History of tonsillectomy Hx of carpal tunnel repair Family History Father Congestive heart failure Mother Breast cancer Social History marital status: unknown household members: significant other Smoking Status: Never smoker alcohol intake: current substance use type: does not use Smoking Status: Never smoker alcohol intake frequency: a few times a month Substance Use Type: does not use Exam Narrative Exam Narrative: GENERAL: Alert and oriented x three, elderly male in mild distress. HEENT: Head normocephalic, atraumatic, EOMI, pupils reactive, face symmetric, moist mucous membranes NECK: Supple, full range of motion CARDIOVASCULAR: Regular rate and rhythm without murmurs, rubs or gallops. RESPIRATORY: Breath sounds equal bilaterally, no wheezes rales or rhonchi. ABDOMEN: Soft, nontender. Normoactive bowel sounds all 4 quadrants. No guarding or rebound, rigidity, no mass : No CVA tenderness EXTREMITIES: Normal range of motion of the left upper extremity accepted left shoulder. Patient has normal movement of fingers, wrist, elbow. He can start to lift his arm but is very painful. On palpation patient has pain over the biceps tendon groove, increased with external rotation less so with internal rotation. Patient does not have any ecchymosis, bruising or swelling. 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 5/5 muscle strength with push-pull. No clubbing or edema. Neurovascularly intact. 2+ radial pulses bilaterally. NEUROLOGICAL: Cranial nerves II through XII grossly intact. Moving all extremities SKIN: Warm, dry, no petechiae, no rashes or lesions. Initial Vital Signs Initial Vital Signs: Vital Signs Temperature 97.9 F 10/10/22 17:40 Pulse Rate 67 10/10/22 17:40 Respiratory Rate 18 10/10/22 17:40 Blood Pressure 158/81 H 10/10/22 17:40 Pulse Oximetry 97 10/10/22 17:40 Oxygen Delivery Method Room Air 10/10/22 17:40 Course Orders Ordered: Discontinued Medications Hydrocodone Bitart/Acetaminophen (Hydrocodone/Acet 5/325 Prepack) 1 bottle MISC SEEINSTR ONE Stop: 10/10/22 19:21 Last Admin: 10/10/22 19:37 Dose: 1 bottle Documented By: DORIS Vital Signs Vital signs: Vital Signs - 8 hr 10/10/22 17:40 Temperature 97.9 F Pulse Rate 67 Respiratory Rate 18 Blood Pressure 158/81 H Pulse Oximetry 97 Oxygen Delivery Method Room Air MDM - Extremity Injury (Upper) Imaging Data Extremity x-ray #1: Radiologist's Impression: Close Shoulder X-Ray (Signed) Jose Guadalupe Bright - 10/10/22 Chest X-Ray (Signed) Jesu Augustine - 09/20/22 Chest X-Ray (Signed) Matheus Stringer - 09/13/22 Shoulder X-Ray (Signed) Garret Valenzuela - 06/22/22 Radiology Report (Cancelled) Abraham Durbin - 08/20/21 Myocardial Perfusion Scan Nuc Med (Signed) Abraham Durbin - 08/20/21 Echocardiogram Ultrasound (Signed) Abraham Durbin - 08/20/21 Facet Joint Injection X-Ray (Signed) Nixon Stringer - 10/28/20 Facet Joint Injection X-Ray (Signed) Nixon Stringer - 09/04/20 Telemetry Strips 07/08/20 Facet Joint Injection X-Ray (Signed) Jennifer William - 08/30/[address] (Signed) Hanny Nguyễn - 07/24/19 Lumbar Spine X-Ray (Signed) Elias Markham - 07/24/19 Echocardiogram Ultrasound (Signed) Viral Burch - 11/20/18 Radiology Report (Cancelled) SiomaraAjit salcedobladimir - 08/08/18 Facet Joint Injection X-Ray (Signed) Siomara,Nixon - 08/08/18 Facet Joint Injection X-Ray (Cancelled) 08/08/18 Facet Joint Injection X-Ray (Signed) Jose Guadalupe Bright - 07/18/[address] (Signed) Jose Guadalupe Bright - 06/14/18 Cervical/Thoracic Injection (Signed) Philippe Hernandez - 11/29/17 Launch?Image [address] [address] XRay Report Signed Patient: Loi Dyer MR#: [id number] : 1940 Acct:[id number] Age/Sex: 82 / M Date of Service: 10/10/22 Loc: ED Accession Number: [id number] ?? Procedure: XR shoulder LT min 2V Ordering Provider: Harshil Carrillo D.O. PROCEDURE:? XR SHOULDER LT MIN 2V ? INDICATIONS:? injury. shoulder popped while lifting wood ? TECHNIQUE:? 3 views of the shoulder were acquired.? ? COMPARISON:? [facility], CR, XR CHEST 2V, 09/20/2022, 15:35.? [facility], CR, XR SHOULDER LT MIN 2V, 06/22/2022, 10:19. ? FINDINGS:? ? Bones:? No fractures or dislocations.? No suspicious bony lesions.? Visualized ribs appear intact.? Degenerative changes are seen, with mild subacromial spurring. ? Soft tissues:? No suspicious soft tissue calcifications.? There is a left-sided pacer device seen. The visualized lung demonstrates an unremarkable appearance. Atherosclerotic calcification of the aortic arch is noted.? ? ? IMPRESSION:? Mild degenerative changes are seen by plain film, without an acute bony abnormality seen. ? ? Dictated by: Jose Guadalupe Bright M.D. on 10/10/2022 at 17:36 ? ? Approved by: Jose Guadalupe Bright M.D. on 10/10/2022 at 17:37?? MDM Narrative Medical decision making narrative: 82-year-old male who presents with complaint of pain after lifting a board off of work face. Patient felt a pop and he has pain in his left shoulder since then. Patient is tender over the biceps tendon groove. No other bony tenderness he has pain with any sort of movement. He does appear to be overall strength intact but did not take him boot full range of motion of his shoulder. X-ray does not show any obvious bony changes. Biceps appears intact with no changes there. Suspect partial proximal biceps tendon tear. Dr. Ledesma, orthopedic surgery: Discussed with Orthopedic surgery.. Agree with plan for sling, pain management have patient call to follow up with the office. Reviewed precautions with patient, return precautions. Discharge Plan Departure Patient Disposition: Home Clinical Impression: Injury of tendon of biceps, Left shoulder pain Activity Restrictions/Additional Instructions: Follow-up with orthopedic surgery, call tomorrow morning for an appointment. I suspect you may have injured her biceps tendon. No lifting until you are seen by Orthopedic surgery. Please wear sling while doing activities you can take it off to take a shower. You may take [place] 1-2 tablets every 6 hours as needed for pain. This medication can make you sleepy do not drive, perform hazardous activities or make any major decisions while taking it. This medication will make you constipated please take a stool softener once to twice daily until stools are soft and regular. Prescription sent to [facility] in [place] Splint Care: Keep sling clean and dry. OK to use ice pack on the affected body part. Use for 15-20 minutes each time, for 5-6x per day. If you develop worsening pain, numbness, tingling, discoloration of the affected body part, just the sling, and either see your doctor for an urgent re-assessment, or return to the Emergency Department. Return to the Emergency Department for any new or worsening symptoms. Prescriptions: New hydrocodone-acetaminophen 5-325 mg tablet 1 tab PO Q6H PRN (Reason: pain) Qty: 10 0RF No Action benzonatate 100 mg capsule 100 mg PO BID PRN (Reason: cough) Qty: 20 0RF gabapentin 600 mg tablet 600 mg PO TID tamsulosin 0.4 mg Capsule,Extended Release 24hr 0.4 mg PO DAILY finasteride 5 mg tablet 5 mg PO DAILY warfarin 5 mg tablet 5 mg PO DAILY Patient Comments: patient reports taking 5mg daily valacyclovir 1 gram tablet 1,000 mg PO TID Qty: 21 0RF atorvastatin 40 mg tablet 40 mg PO DAILY tizanidine 2 mg tablet 2 mg PO TID PRN (Reason: muscle spasticity) Hold Instructions: Home Medication placed on hold at Doctor's office trazodone 100 mg tablet 100 mg PO BEDTIME PRN nortriptyline 25 mg capsule 25 mg PO BEDTIME Referrals: Laurie Ledesma MD [Physician] - Sarah Caballero MD [Primary Care Provider] - Stand Alone Forms: Patient Portal/API
[2022-10-10] MEDS: HYDROCODONE/ACET 5/325 PREPACK 1 BOTTLE MISC (19:37)
[2022-10-10 19:38] VITALS: BP 173/99; PULSE 70; RESP 17; O2SAT 99
== END 2022-10-10 19:42 | disposition home or self-care (01) ==
PROVIDERS: Emergency Provider Emergency Medicine; Family Provider Family Medicine; PCP Family Medicine
DX: S46.202A Unspecified injury of muscle, fascia and tendon of other parts of biceps, left arm, initial encounter (principal); M25.512 Pain in left shoulder; X50.9XXA Other and unspecified overexertion or strenuous movements or postures, initial encounter
CPT/HCPCS: 73030; 99282; 99283

== ENCOUNTER → 2022-10-15 10:28 | Outpatient (CLI) | payer MEDICARE, SELFPAY ==
--- NOTE | 2022-10-15 | DI.CT.S_ITS ---
PROCEDURE: CT UE LT WO CON INDICATIONS: ROTATOR CUFF TEAR W/PROXIMAL BICEPS TENDON TEAR TECHNIQUE: Noncontrast 1-1.5 mm thick sections acquired from the acromioclavicular joint to the distal humeral shaft/elbow joint, with coronal and sagittal reformatting. COMPARISON: None. FINDINGS: Image quality: Excellent. Bones: There is moderate acromioclavicular joint osteoarthritis with joint space narrowing, subchondral sclerosis and marginal osteophyte formation depressing the musculotendinous junction of supraspinatus. Mild to moderate glenohumeral joint osteoarthritic changes also seen. There is no fracture or dislocation. No suspicious bony lesions. Elbow alignment is anatomic. No elbow fracture or dislocation. Visualized left ribs are grossly intact. Soft tissues: There is no gross full-thickness rotator cuff tendon rupture. No significant rotator cuff muscle atrophy is seen on sagittal views. Evaluation of proximal and distal biceps tendons are markedly limited due to limitation of CT modality. Biceps tendon is seen within bicipital groove to the level of upper to mid humeral head. More proximal long head of biceps tendon cannot be definitively identified. No gross full-thickness distal biceps tendon rupture. No abnormal soft tissue calcifications. No significant joint effusion or calcified intra-articular loose bodies. No axillary lymphadenopathy. Left chest wall pacemaker is seen. IMPRESSION: 1. No acute shoulder fracture or dislocation. Moderate acromioclavicular joint osteoarthritis and [id number] glenohumeral joint osteoarthritis. No suspicious bony lesions. 2. No full-thickness rotator cuff tendon rupture. No significant rotator cuff muscle atrophy. 3. Proximal biceps tendon is intact to the level of upper humeral head within bicipital groove. More proximal portion of the biceps tendon is not well seen. No gross full-thickness distal biceps tendon rupture. Dictated by: Stuart Feliciano M.D. on 10/15/2022 at 11:51 Approved by: Stuart Feliciano M.D. on 10/15/2022 at 12:06
== END ==
PROVIDERS: Family Provider Family Medicine; PCP Family Medicine; Referring Provider Physician Assistant Medical; Visit Provider Physician Assistant Medical
DX: M75.102 Unspecified rotator cuff tear or rupture of left shoulder, not specified as traumatic (principal); M19.012 Primary osteoarthritis, left shoulder
CPT/HCPCS: 73200

== ENCOUNTER → 2022-10-20 11:19 | Outpatient (ROUT) | payer MEDICARE, SELFPAY ==
[2022-10-20 11:33] LABS: INR 2.7 (0.9-1.3); Prothrombin Time 31.8 SECONDS (10.1-12.7)
== END ==
PROVIDERS: Family Provider Family Medicine; PCP Family Medicine; Visit Provider Family Medicine
DX: I48.20 Chronic atrial fibrillation, unspecified (principal); Z79.01 Long term (current) use of anticoagulants
CPT/HCPCS: 85610

== ENCOUNTER → 2022-11-10 08:36 | Outpatient (ROUT) | payer MEDICARE, SELFPAY ==
[2022-11-10 08:50] LABS: INR 2.9 (0.9-1.3)
== END ==
PROVIDERS: Family Provider Family Medicine; PCP Family Medicine; Visit Provider Family Medicine
DX: I48.91 Unspecified atrial fibrillation (principal)
CPT/HCPCS: 85610

== ENCOUNTER → 2022-11-29 13:00 | Outpatient (ROUT) | payer MEDICARE, SELFPAY ==
[2022-11-29 13:14] LABS: INR 2.7 (0.9-1.3); Prothrombin Time 31.8 SECONDS (10.1-12.7)
== END ==
PROVIDERS: Family Provider Family Medicine; PCP Family Medicine; Visit Provider Family Medicine
DX: Z79.01 Long term (current) use of anticoagulants (principal); I48.20 Chronic atrial fibrillation, unspecified
CPT/HCPCS: 85610

== ENCOUNTER → 2023-03-09 15:55 | Outpatient (ROUT) | payer MEDICARE, SELFPAY ==
[2023-03-09 16:39] LABS: INR 2.1 (0.9-1.3); Prothrombin Time 23.8 SECONDS (9.4-12.5)
== END ==
PROVIDERS: Family Provider Family Medicine; PCP Family Medicine; Visit Provider Family Medicine
DX: I48.11 Longstanding persistent atrial fibrillation (principal); Z79.01 Long term (current) use of anticoagulants
CPT/HCPCS: 85610

== ENCOUNTER → 2023-06-14 10:10 | Outpatient (CLI) | payer MEDICARE, SELFPAY ==
--- NOTE | 2023-06-14 10:13 | DI.RAD.S_ITS ---
PROCEDURE: XR CHEST 2V INDICATIONS: shortness of breath TECHNIQUE: 2 views of the chest were acquired. COMPARISON: [facility], , XR CHEST 2V, 09/20/2022, 15:35. FINDINGS: Surgical changes and devices: Left chest wall pacemaker leads are in the region of right atrium and right ventricle. Lungs and pleura: Lungs are clear. No pleural effusions or pneumothorax. Mediastinum: Mediastinal contours are normal. Heart size is normal. Bones and chest wall: No suspicious bony abnormalities. Soft tissues appear unremarkable. IMPRESSION: No acute cardiopulmonary pathology. Dictated by: Stuart Feliciano M.D. on 06/14/2023 at 12:00 Approved by: Stuart Feliciano M.D. on 06/14/2023 at 12:01
== END ==
LOC: RAD 10:12
PROVIDERS: Family Provider Family Medicine; PCP Family Medicine; Referring Provider Family Medicine; Visit Provider Family Medicine
DX: I48.11 Longstanding persistent atrial fibrillation (principal); R06.02 Shortness of breath; Z79.01 Long term (current) use of anticoagulants; Z95.0 Presence of cardiac pacemaker
CPT/HCPCS: 71046; 85610

== ENCOUNTER → 2023-06-14 10:42 | Outpatient (ROUT) | payer MEDICARE, SELFPAY ==
[2023-06-14 10:58] LABS: INR 1.4 (0.9-1.3); Prothrombin Time 16.6 SECONDS (9.4-12.5)
== END ==
PROVIDERS: Family Provider Family Medicine; PCP Family Medicine; Visit Provider Family Medicine
DX: I48.11 Longstanding persistent atrial fibrillation (principal); Z79.01 Long term (current) use of anticoagulants
CPT/HCPCS: 85610

== ENCOUNTER → 2023-06-23 08:56 | Outpatient (ROUT) | payer MEDICARE, SELFPAY ==
[2023-06-23 09:12] LABS: INR 2.1 (0.9-1.3); Prothrombin Time 23.8 SECONDS (9.4-12.5)
== END ==
PROVIDERS: Family Provider Family Medicine; PCP Family Medicine; Visit Provider Family Medicine
DX: I48.11 Longstanding persistent atrial fibrillation (principal); Z79.01 Long term (current) use of anticoagulants
CPT/HCPCS: 85610

== ENCOUNTER → 2023-07-07 06:29 | Outpatient (CLI) | payer MEDICARE, SELFPAY | LOC: RESP 06:30 | PROVIDERS: Family Provider Family Medicine; PCP Family Medicine; Referring Provider Family Medicine; Visit Provider Family Medicine | DX: J45.41 Moderate persistent asthma with (acute) exacerbation (principal) | CPT/HCPCS: 94010; 94726; 94729 ==

== ENCOUNTER → 2023-07-12 13:42 | Outpatient (ROUT) | payer MEDICARE, SELFPAY ==
[2023-07-12 15:40] LABS: INR 2.3 (0.9-1.3); Prothrombin Time 27.1 SECONDS (9.4-12.5)
== END ==
PROVIDERS: Family Provider Family Medicine; PCP Family Medicine; Visit Provider Family Medicine
DX: I48.11 Longstanding persistent atrial fibrillation (principal); Z79.01 Long term (current) use of anticoagulants
CPT/HCPCS: 85610

== ENCOUNTER → 2023-07-29 08:54 | Outpatient (ROUT) | payer MEDICARE, SELFPAY ==
[2023-07-29 09:09] LABS: INR 2.7 (0.9-1.3); Prothrombin Time 30.9 SECONDS (9.4-12.5)
== END ==
PROVIDERS: Family Provider Family Medicine; PCP Family Medicine; Visit Provider Family Medicine
DX: I48.11 Longstanding persistent atrial fibrillation (principal); Z79.01 Long term (current) use of anticoagulants
CPT/HCPCS: 85610

== ENCOUNTER → 2023-08-19 09:57 | Outpatient (ROUT) | payer MEDICARE, SELFPAY ==
[2023-08-19 10:14] LABS: Prothrombin Time 22.9 SECONDS (9.4-12.5)
== END ==
PROVIDERS: Family Provider Family Medicine; PCP Family Medicine; Visit Provider Family Medicine
DX: Z79.01 Long term (current) use of anticoagulants (principal); I48.11 Longstanding persistent atrial fibrillation
CPT/HCPCS: 85610

== ENCOUNTER → 2023-08-29 06:26 | Outpatient (CLI) | payer MEDICARE, SELFPAY ==
--- NOTE | 2023-08-29 06:28 | DI.CT.S_ITS ---
PROCEDURE: CT HEAD/BRAIN WO CON INDICATIONS: TIA/DIZZINESS/CONFUSION TECHNIQUE: Noncontrast 4.5 mm thick angled axial sections acquired from the foramen magnum to the vertex, with coronal and sagittal reformats. For radiation dose reduction, the following was used: automated exposure control, adjustment of mA and/or kV according to patient size. COMPARISON: None. FINDINGS: Image quality: Diagnostic. CSF spaces: Basal cisterns are patent. No extra-axial fluid collections. The ventricles are symmetric in size and shape. Brain: No intracranial bleeds or masses. There is cerebral volume loss for age, with resultant ventricular and sulcal prominence. 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 There are periventricular and deep white matter chronic small vessel ischemic changes. There is intracranial internal carotid artery atherosclerosis. Skull and face: Calvarium and visualized facial bones appear intact, without suspicious lesions. Sinuses: Visualized sinuses and mastoids are clear. IMPRESSION: No acute intracranial pathology. Dictated by: Juan M Aguilera M.D. on 08/29/2023 at 10:39 Approved by: Juan M Aguilera M.D. on 08/29/2023 at 10:45
--- NOTE | 2023-08-29 06:30 | DI.CT.S_ITS ---
PROCEDURE: CT ANGIO HEAD AND NECK INDICATIONS: TIA/DIZZINESS/CONFUSION TECHNIQUE: After the administration of intravenous contrast, 1 mm thick sections acquired from the aortic arch through the [place]. 3-dimensional ofakadu-cbcplvcsd-cvyyftxjra (MIP) and/or volume rendering reformats were acquired of the central intracranial vasculature and neck separately. For radiation dose reduction, the following was used: automated exposure control, adjustment of mA and/or kV according to patient size. COMPARISON: None. FINDINGS: Image quality: Diagnostic. BRAIN: Please refer to same day CT of the head. HEAD CT ANGIOGRAPHY: Anterior circulation: Intracranial internal carotid arteries are normal in size and flow with mild atherosclerotic calcifications. The flow within the paired anterior cerebral arteries is normal and symmetric. The flow within the middle cerebral arteries is normal and symmetric. The anterior communicating artery is seen. No aneurysms are seen. Posterior circulation: Visualized portions of the vertebral arteries demonstrate normal caliber, and join to form a normal appearing basilar artery. 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 Flow within the posterior cerebral arteries is normal and symmetric. No aneurysms are seen. NECK CT ANGIOGRAPHY: Carotid system: The great vessels demonstrate a conventional anatomy as they arise from the aortic arch. The origins of the common carotid arteries appear patent. The common carotid arteries demonstrate normal caliber and courses. The bifurcation regions demonstrate coarse calcifications without significant stenosis. The internal carotid arteries demonstrate normal calibers and courses. Posterior circulation: The origins of the vertebral arteries both appear widely patent. The more superior extracranial portions of both vertebral arteries also demonstrate normal courses and calibers. They join to form a normal appearing basilar artery. Soft tissues: Visualized neck soft tissues demonstrate no suspicious abnormalities. Left chest wall pacemaker is partially visualized. Bones: No suspicious bony lesions. Multilevel degenerative changes of the spine. Visualized cervical spine appears normally aligned. IMPRESSION: No significant intracranial arterial abnormality is seen. No significant abnormality is seen within the arteries of the neck. Any quantitative measurements of stenosis were performed using NASCET criteria. Dictated by: Juan M Aguilera M.D. on 08/29/2023 at 10:45 Approved by: Juan M Aguilera M.D. on 08/29/2023 at 10:50
== END ==
PROVIDERS: Family Provider Family Medicine; PCP Family Medicine; Referring Provider Family Medicine; Visit Provider Family Medicine
DX: G45.9 Transient cerebral ischemic attack, unspecified (principal)
CPT/HCPCS: 70450; 70496; 70498; Q9967

== ENCOUNTER → 2023-09-15 07:31 | Outpatient (CLI) | payer MEDICARE, SELFPAY ==
--- NOTE | 2023-09-15 07:33 | DI.ECHO.S_ITS ---
[facility] +---------+ [facility] : : [address] : [place] : : [id number] : : Phone: [phone] Echocardiogram Report + + :Name: CONNER ARIAS Study Date: 09/15/2023 Height: 72 in : :Hospital ReadingLocation: Weight: 180 lb : : Gender: Male BSA: 2.0 m2 : :: 1940 Age: 83 yrs BP: 118/80 mmHg: :Reason For Study: ATRIAL FIBRILLATION, DIZZINESS, TIA : :Ordering Physician: MEHRDAD, : :SHANNEN Performed By: Dione Bailey : :Referring: SHANNEN CRONIN : + + Interpretation Summary Afib with controlled rate. Normal LV size and wall thickness; global hypokinesis. EF is 40-45%. Severe RA enlargement and moderate LA enlargement. Moderate RV enlargement Aortic sclerosis without stenosis. There is a pacing lead traversing the tricuspid valve with moderate associated tricuspid regurgitation. Estimated PA systolic pressure is 38 mm Hg assuming RA pressure of 15 mm Hg. Compared to prior study 08/20/2021, no significant changes have occurred. Procedure: A two-dimensional transthoracic echocardiogram with color flow and Doppler was performed. The study quality was technically adequate. Comparison is made with the echocardiogram of 08/20/2021. The patient has a paced rhythm. The heart rate ranged between 70 bpm during the study. Left Ventricle: The left ventricle is normal in size and wall thickness. The ejection fraction is estimated to be 45-50%. Diastolic function could not be accurately assessed due to atrial fibrillation. Right Ventricle: The right ventricle is mildly dilated. There is a pacemaker lead in the right ventricle. Right ventricular systolic function is at the lower limits of normal. Atria: There is severe biatrial enlargement. There is a catheter/pacemaker lead seen in the right atrium. There is no Doppler evidence for an interatrial shunt. Mitral Valve: The mitral valve leaflets appear mildly thickened, but open well. There is moderate mitral regurgitation. Aortic Valve: The aortic valve is mildly calcified. The aortic valve is trileaflet. The aortic valve opens well. There is no aortic valve stenosis. No aortic regurgitation is present. Tricuspid Valve: The tricuspid valve leaflets are thin and pliable. There is moderate tricuspid regurgitation. The right ventricular systolic pressure is estimated to be at least 38 mmHg based on an estimated right atrial pressure of 15 mm Hg. Pulmonic Valve: The pulmonic valve is not well seen, but is grossly normal. There is mild pulmonic regurgitation. Great Vessels: The aortic root is normal size. The dimensions of the ascending aorta are normal. The IVC is dilated (diameter is greater than 2.1 cm) and it collapses less than 50% with a sniff. This suggests a high right atrial pressure of 15 mm Hg. Pericardium/ Pleura There is no pericardial effusion. There is no pleural effusion. MMode/2D Measurements & Calculations LVIDd: 5.2 cm LVOT diam: 2.0 cm LVIDs: 4.0 cm Ao root diam: 3.5 cm FS: 22.9 % asc Aorta Diam: 3.4 cm IVSd: 0.76 cm Ao Arch Diam (Prox Trans): 2.8 cm LVPWd: 0.77 cm LV schmitt. diameter/BSA (cm/m^2): 2.5 LV sys. diameter/BSA (cm/m^2): 2.0 LA A2 area: 26.4 cm2 RA long axis: 6.9 cm LA A4 area: 26.1 cm2 RA area: 29.3 cm2 LA length (vol): 6.1 cm RA vol: 105.7 ml LA vol: 95.6 ml RA : 51.9 ml/m2 LA vol index: 46.9 ml/m2 IVC diam: 2.9 cm RVD1 (basal): 4.6 cm RVD2 (mid): 3.1 cm TAPSE: 1.6 cm Doppler Measurements & Calculations Ao V2 max: 124.5 cm/sec LVOT Max Nagi: 85.1 cm/sec Ao V2 mean: 97.6 cm/sec LV V1 max P.9 mmHg Ao max P.2 mmHg LV V1 VTI: 14.5 cm Ao mean P.0 mmHg RONALDO(I,D): 1.8 cm2 Ao V2 VTI: 24.2 cm RONALDO(V,D): 2.1 cm2 sev ratio: 0.60 RONALDO indexed to BSA (cm^2/m^2): 0.89 MV E max nagi: 74.3 cm/sec TR max nagi: 237.6 cm/sec MV A max nagi: 1.2 cm/sec TR max P.6 mmHg MV E/A: 64.1 PA V2 max: 72.6 cm/sec Med Peak E' Nagi: 9.7 cm/sec PA V2 mean: 50.1 cm/sec E/E' med: 7.6 PA mean P.1 mmHg Lat Peak E' Nagi: 16.6 cm/sec PA pr(Accel): 44.7 mmHg E/E' lat: 4.5 E/e' average: 6.0 MV dec time: 0.26 sec SV(SUSANOT): 44.0 ml Electronically signed by: Radha Osborne M.D. on Reading Physician:09/16/2023 01:22 AM
== END ==
PROVIDERS: Family Provider Family Medicine; PCP Family Medicine; Referring Provider Family Medicine; Visit Provider Family Medicine
DX: G45.9 Transient cerebral ischemic attack, unspecified (principal); I08.1 Rheumatic disorders of both mitral and tricuspid valves; I48.11 Longstanding persistent atrial fibrillation; R42 Dizziness and giddiness; R55 Syncope and collapse; Z95.0 Presence of cardiac pacemaker
CPT/HCPCS: 93306

== ENCOUNTER 2023-09-16 23:11 | Emergency (ER) | payer MEDICARE, SELFPAY ==
[2023-09-16 23:15] VITALS: BP 128/74; PULSE 70; RESP 17; TEMP 36.9; O2SAT 97; BMI 24.4
--- NOTE | 2023-09-16 23:21 | EKG_ITS ---
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
[2023-09-16 23:52] LABS: INR 2.6 (0.9-1.3); Prothrombin Time 30.6 SECONDS (9.4-12.5)
[2023-09-16 23:54] LABS: PTT Partial Thromboplastin Tim 46 SECONDS (25.1-36.5)
[2023-09-16 23:55] LABS: Alanine Aminotransferase 18 IU/L (<50); Albumin 3.7 g/dL (3.5-5.0); Albumin Globulin Ratio 1.2 (1.0-2.8); Alkaline Phosphatase 65 U/L (38-126); Aspartate Aminotransferase 28 IU/L (17-59); BUN Creatinine Ratio 26.7 (6-22); Bilirubin Total 0.8 mg/dL (0.2-1.3); Blood Urea Nitrogen 23 mg/dL (9-20); Calcium 8.7 mg/dL (8.4-10.2); Carbon Dioxide 28 mmol/L (22-32); Chloride 104 mmol/L (98-107); Creatine Kinase 63 U/L (55-170); Estimated Glomerular Filt Rate > 60 mL/min (>60); Glucose 121 mg/dL (80-110); HEMOLYSIS < 15 (0-50); Lipase 86 U/L (23-300); Magnesium 1.8 mg/dL (1.6-2.3); Potassium 3.9 mmol/L (3.4-5.1); Sodium 136 mmol/L (137-145); Total Protein 6.7 g/dL (6.3-8.2)
[2023-09-16 23:58] LABS: Add Manual Diff / Slide Review NO; Basophils Absolute Auto 100 /uL (0-100); Basophils Percent Auto 0.7 % (0-2); Eosinophils Absolute Auto 100 /uL (0-450); Eosinophils Percent Auto 0.5 % (2-4); Hematocrit 36.8 % (41-53); Hemoglobin 12.5 g/dL (13.5-17.5); Lymphocytes Absolute Auto 1400 /uL (1100-4500); Lymphocytes Percent Auto 13.3 % (25-40); Mean Corpuscular HGB Conc 33.9 % (30-36); Mean Corpuscular Hemoglobin 32.8 PG (26-34); Mean Corpuscular Volume 96.7 fL (80-100); Monocytes Absolute Auto 1100 /uL (0-900); Monocytes Percent Auto 9.7 % (3-14); Neutrophils Absolute Auto 8200 /uL (1500-7000); Neutrophils Percent Auto 75.8 % (50-75); Platelet Count 189 X10^3/uL (150-400); Red Blood Cell Count 3.81 X10^6/uL (4.5-5.9); Red Cell Distribution Width 12.7 % (11.6-14.8); White Blood Cell Count 10.9 X10^3/uL (4.5-11.0)
[2023-09-17] VITALS (8 sets, daily range): BP systolic 99–120; BP diastolic 57–71; PULSE 69–78; RESP 16–35; O2SAT 93–98
[2023-09-17 00:06] LABS: NT-proBNP (BNP-Adult 18+) 1080 pg/mL (<450)
[2023-09-17 00:07] LABS: Troponin I < 0.012 ng/mL (0.01-0.034)
[2023-09-17 00:33] LABS: Adenovirus Not Detected (Not Detect); B. parapertussis Not Detected (Not Detecte); Bordetella pertussis Not Detected (Not Detect); Chlamydophila pneumoniae Not Detected (Not Detect); Coronavirus 229E Not Detected (Not Detect); Coronavirus HKU1 Not Detected (Not Detect); Coronavirus NL 63 Not Detected (Not Detect); Coronavirus OC43 Not Detected (Not Detect); Human Metapneumovirus Not Detected (Not Detect); Human Rhinovirus/Enterovirus Not Detected (Not Detect); Influenza A Not Detected (Not Detect); Influenza B Not Detected (Not Detect); Mycoplasma pneumoniae Not Detected (Not Detect); Parainfluenza Virus 1 Not Detected (Not Detect); Parainfluenza Virus 2 Not Detected (Not Detect); Parainfluenza Virus 3 Not Detected (Not Detect); Parainfluenza Virus 4 Not Detected (Not Detect); Respiratory Syncytial Virus Not Detected (Not Detect); SARS- CoV-2 Not Detected (Not Detecte)
--- NOTE | 2023-09-17 00:58 | ED_ITS ---
HPI - Chest Pain General Chief Complaint: Chest Pain Stated Complaint: chest pain and hard to breath Time Seen by Provider: 09/17/23 00:40 Source: patient and family Mode of arrival: Ambulatory Limitations: no limitations History of Present Illness HPI narrative: 83-year-old male with history of warfarin use, pacemaker placement, intermittent aspiration presents for intermittent right-sided chest pain for the last several weeks, worse in the last 3-4 days. Also reporting associated fevers, T-max 100.6? at home, treated with Tylenol. Patient states that he has been seeing his primary care doctor for this complaint, he states that he has had endoscopies, CT scans of his head and neck, but no cause has been found. Tonight while trying to go to bed his pain worsened, and he was unable to sleep. Pain worse with coughing and with deep inspiration. Related Data Home Medications Medication Instructions Recorded Confirmed finasteride 5 mg tablet 5 mg PO DAILY 07/11/17 10/24/20 gabapentin 600 mg tablet 600 mg PO TID 07/11/17 10/24/20 tamsulosin 0.4 mg capsule 0.4 mg PO DAILY 07/11/17 10/24/20 atorvastatin 40 mg tablet 40 mg PO DAILY 11/17/17 10/24/20 tizanidine 2 mg tablet 2 mg PO TID PRN muscle spasticity 07/18/19 10/24/20 warfarin 5 mg tablet 5 mg PO DAILY 07/18/19 10/24/20 nortriptyline 25 mg capsule 25 mg PO BEDTIME 09/26/19 10/24/20 trazodone 100 mg tablet 100 mg PO BEDTIME PRN 08/08/20 10/24/20 Previous Rx's Medication Instructions Recorded valacyclovir 1 gram tablet 1,000 mg PO TID #21 tabs 06/15/20 benzonatate 100 mg capsule 100 mg PO BID PRN cough #20 caps 09/13/22 hydrocodone 5 mg-acetaminophen 325 1 tab PO Q6H PRN pain #10 tabs 10/10/22 mg tablet hydrocodone 5 mg-acetaminophen 325 1 tab PO Q8H PRN pain #10 tabs 09/17/23 mg tablet levofloxacin 750 mg tablet 750 mg PO Q24H #5 tabs 09/17/23 Allergies Allergy/AdvReac Type Severity Reaction Status Date / Time Penicillins Allergy Severe Rash Verified 10/10/22 17:46 tetracycline Allergy Severe Rash Verified 10/10/22 17:46 articaine [From Septocaine] Allergy Intermediate Burning Verified 10/10/22 17:46 Mouth Syndrome epinephrine [From Septocaine] Allergy Intermediate Burning Verified 10/10/22 17:46 Mouth Syndrome Sulfa (Sulfonamide Allergy Mild Rash Verified 10/10/22 17:46 Antibiotics) Patient History Medical History Arthropathy of lumbosacral facet joint Lumbosacral spondylosis with radiculopathy Pacemaker Arthritis Headache Surgical History Hx of carpal tunnel repair H/O knee surgery History of tonsillectomy Family History Father Congestive heart failure Mother Breast cancer Social History marital status: unknown household members: significant other Smoking Status: Never smoker alcohol intake: current substance use type: does not use Smoking Status: Never smoker alcohol intake frequency: a few times a month Substance Use Type: does not use Exam Initial Vital Signs Initial Vital Signs: Vital Signs Temperature 98.5 F 09/16/23 23:15 Pulse Rate 70 09/16/23 23:15 Respiratory Rate 17 09/16/23 23:15 Blood Pressure 128/74 09/16/23 23:15 Pulse Oximetry 97 09/16/23 23:15 Oxygen Delivery Method Room Air 09/16/23 23:15 Const: Awake, alert, no acute distress, nontoxic appearing Cardiac: regular rate, regular rhythm RESP: unlabored, unable to take deep breath due to pain, no obvious rales/rhonchi/wheezing Skin: Warm, Dry, intact, no rashes Neuro: AO x3, CN II-XII grossly intact, moves all extremities Course Orders Ordered: Discontinued Medications Levofloxacin (Levofloxacin 250 Mg Tablet) 750 mg PO NOW ONE Stop: 09/17/23 03:06 Last Admin: 09/17/23 03:15 Dose: 750 mg Documented By: LUKE Oxycodone HCl (Oxycodone Ir 5 Mg Tablet) 5 mg PO NOW ONE Stop: 09/17/23 02:07 Last Admin: 09/17/23 02:21 Dose: 5 mg Documented By: LUKE Vital Signs Vital signs: Vital Signs - 8 hr 09/16/23 23:15 09/17/23 00:43 09/17/23 00:44 Temperature 98.5 F Pulse Rate 70 78 70 Respiratory Rate 17 20 18 Blood Pressure 128/74 Pulse Oximetry 97 93 98 Oxygen Delivery Method Room Air 09/17/23 00:44 Temperature Pulse Rate Respiratory Rate Blood Pressure 120/71 Pulse Oximetry Oxygen Delivery Method MDM - Chest Pain Differential Diagnosis Differential diagnosis: Likely fracture of rib, pneumothorax and atypical chest pain Lab Data 09/16/23 23:35 09/16/23 23:35 Labs: Lab Results 09/16/23 Range/Units 23:35 WBC 10.9 (4.5-11.0) X10^3/uL RBC 3.81 L (4.5-5.9) X10^6/uL Hgb 12.5 L (13.5-17.5) g/dL Hct 36.8 L (41-53) % MCV 96.7 (80-100) fL MCH 32.8 (26-34) PG MCHC 33.9 (30-36) % RDW 12.7 (11.6-14.8) % Plt Count 189 (150-400) X10^3/uL Neut % (Auto) 75.8 H (50-75) % Lymph % (Auto) 13.3 L (25-40) % [place] % (Auto) 9.7 (3-14) % Eos % (Auto) 0.5 L (2-4) % Baso % (Auto) 0.7 (0-2) % Neut # (Auto) 8200 H (3483-0521) /uL Lymph # (Auto) 1400 (2977-8504) /uL [place] # (Auto) 1100 H (0-900) /uL Eos # (Auto) 100 (0-450) /uL Baso # (Auto) 100 (0-100) /uL PT 30.6 H (9.4-12.5) SECONDS INR 2.6 H (0.9-1.3) APTT 46 H (25.1-36.5) SECONDS Sodium 136 L (137-145) mmol/L Potassium 3.9 (3.4-5.1) mmol/L Chloride 104 (98-107) mmol/L Carbon Dioxide 28 (22-32) mmol/L BUN 23 H (9-20) mg/dL Creatinine 0.86 (0.66-1.25) mg/dL Estimated GFR > 60 (>60) mL/min BUN/Creatinine Ratio 26.7 H (6-22) Glucose 121 H (80-110) mg/dL Calcium 8.7 (8.4-10.2) mg/dL Magnesium 1.8 (1.6-2.3) mg/dL Total Bilirubin 0.8 (0.2-1.3) mg/dL AST 28 (17-59) IU/L ALT 18 (<50) IU/L Alkaline Phosphatase 65 (38-126) U/L Total Creatine Kinase 63 (55-170) U/L Troponin I < 0.012 (0.01-0.034) ng/mL NT-Pro-B Natriuret Pep 1080 H (<450) pg/mL Total Protein 6.7 (6.3-8.2) g/dL Albumin 3.7 (3.5-5.0) g/dL Globulin 3.0 (1.7-4.1) g/dL Albumin/Globulin Ratio 1.2 (1.0-2.8) Lipase 86 (23-300) U/L Chlamy pneumoniae PCR Not detected (Not Detect) Adenovirus (PCR) Not detected (Not Detect) B.parapertussis DNA PCR Not detected (Not Detecte) Coronavirus OC43 (PCR) Not detected (Not Detect) Coronavirus HKU1 (PCR) Not detected (Not Detect) Coronavirus 229E (PCR) Not detected (Not Detect) SARS-CoV-2 (PCR) Not detected (Not Detecte) Coronavirus NL63 (PCR) Not detected (Not Detect) Human Metapneumovir PCR Not detected (Not Detect) Influenza Type A (PCR) Not detected (Not Detect) Influenza Type B (PCR) Not detected (Not Detect) M. pneumoniae (PCR) Not detected (Not Detect) Parainfluenza 1 (PCR) Not detected (Not Detect) Parainfluenza 2 (PCR) Not detected (Not Detect) Parainfluenza 3 (PCR) Not detected (Not Detect) Parainfluenza 4 (PCR) Not detected (Not Detect) RSV (PCR) Not detected (Not Detect) Entero/Rhino (PCR) Not detected (Not Detect) Imaging Data CT scan - chest: Radiologist's Impression: PROCEDURE: CT CHEST W CON INDICATIONS: INTERMITTENT FEVERS, COUGH, R RIB PAIN TECHNIQUE: After the administration of intravenous contrast, 5 mm thick sections acquired from the pulmonary apices to the posterior costophrenic angles. 1 mm axial lung, 5 mm thick coronal and sagittal reformats and 7 mm axial MIP were acquired. For radiation dose reduction, the following was used: automated exposure control, adjustment of mA and/or kV according to patient size. COMPARISON: None. FINDINGS: Image quality: Diagnostic. Lower Neck: No enlarged lymph nodes. Thyroid: No thyroid nodules which require sonographic follow up, per consensus guidelines. Axillae: No enlarged lymph nodes. Chest Wall: Left chest wall pacemaker. Bones: Unremarkable. Lungs and Pleura: Biapical pleuroparenchymal scarring. Consolidation within the right middle lobe with central low attenuation. Right lower lobe nodule measuring 8 millimeters (8/161). Additional smaller nodules are noted. Heart: Heart size is enlarged. No pericardial effusion. Thoracic Vessels: The aorta and pulmonary arteries demonstrate normal size. Mediastinum and Usha: Prominent and enlarged mediastinal lymph nodes. Esophagus: No wall thickening. No hiatal hernia. Upper Abdomen: Visualized upper abdomen solid organs and bowel loops appear normal. IMPRESSION: 1. Right middle lobe consolidation with probable central necrosis. Recommend short-term interval follow-up CT in 3 months after appropriate treatment to ensure complete resolution. 2. Right lower lobe nodule measuring 8 millimeters. Attention on follow-up. 3. Mediastinal lymphadenopathy, likely reactive. Attention on follow-up. Findings are concordant with preliminary interpretation provided by [facility]. Dictated by: Juan M Aguilera M.D. on 09/17/2023 at 7:23 Approved by: Juan M Aguilera M.D. on 09/17/2023 at 7:27 ECG Data Interpretation: Ventricular paced rhythm at 70 beats per minute, normal axis MDM Narrative Medical decision making narrative: Nontoxic appearing patient with worsening of chronic right-sided chest pain. Saturating well on room air, vital signs stable, patient does seem to wince in pain when asked to take a deep breath. Since this has been ongoing for quite some time a CT chest ordered as well as laboratory work. Oxycodone tablets given for pain. Laboratory work shows WBC count 10.9, hemoglobin 12.5, platelets 189, INR 2.6, sodium 136, potassium 3.9, creatinine 0.86, normal liver enzymes, troponin undetectable, BNP 1080. CT of the chest shows right middle lobe infiltrate with possible central necrosis. Possibly from chronic aspiration, which patient states is a problem for him. With otherwise normal labs, stable oxygen saturations, improvement of pain with the oral medications patient states he would like to go home. He has an appointment with his primary care doctor in several days and measure his progress at that time. Patient reports allergy to penicillins, so Levaquin as ordered. Patient does take warfarin and was counseled to closely monitor his INR on this medication. Discharge Plan Departure Patient Disposition: Home Clinical Impression: Pneumonia Instructions: DI for Pneumonia -- Adult Activity Restrictions/Additional Instructions: Your CT today showed that you have a right middle lobe pneumonia. Finish all of your antibiotics as prescribed even if you feel better. Follow up with your primary care doctor. A short course of pain medication has been sent to your pharmacy. Do not take this medication with alcohol or before driving as it may cause drowsiness and can put you at increased risk for falling. This medication may also cause constipation, take a daily stool softener with this medication. The levofloxacin may interact with your warfarin, however since you have an allergy to penicillins I am prescribing this medication to you. Please make sure that you closely monitor your INR while on this medication. Prescriptions: New levofloxacin 750 mg tablet 750 mg PO Q24H Qty: 5 0RF hydrocodone-acetaminophen 5-325 mg tablet 1 tab PO Q8H PRN (Reason: pain) Qty: 10 0RF No Action benzonatate 100 mg capsule 100 mg PO BID PRN (Reason: cough) Qty: 20 0RF gabapentin 600 mg tablet 600 mg PO TID tamsulosin 0.4 mg Capsule,Extended Release 24hr 0.4 mg PO DAILY finasteride 5 mg tablet 5 mg PO DAILY warfarin 5 mg tablet 5 mg PO DAILY Patient Comments: patient reports taking 5mg daily valacyclovir 1 gram tablet 1,000 mg PO TID Qty: 21 0RF hydrocodone-acetaminophen 5-325 mg tablet 1 tab PO Q6H PRN (Reason: pain) Qty: 10 0RF atorvastatin 40 mg tablet 40 mg PO DAILY tizanidine 2 mg tablet 2 mg PO TID PRN (Reason: muscle spasticity) Hold Instructions: Home Medication placed on hold at Doctor's office trazodone 100 mg tablet 100 mg PO BEDTIME PRN nortriptyline 25 mg capsule 25 mg PO BEDTIME Referrals: Sarah Caballero MD [Primary Care Provider] - Stand Alone Forms: Patient Portal/API
[2023-09-17] MEDS: OXYCODONE IR 5 MG TABLET PO (02:21)
[2023-09-17] MEDS: levoFLOXacin 250 MG TABLET 750 MG PO (03:15)
== END 2023-09-17 03:30 | disposition home or self-care (01) ==
PROVIDERS: Emergency Provider Emergency Medicine; Family Provider Family Medicine; PCP Family Medicine
DX: J18.9 Pneumonia, unspecified organism (principal); R07.9 Chest pain, unspecified; Z95.0 Presence of cardiac pacemaker
CPT/HCPCS: 36415; 71260; 80053; 82550; 83690; 83735; 83880; 84484; 85025; 85610; 85730; 87633; 93005; 99284; Q9967

== ENCOUNTER → 2023-09-20 13:44 | Outpatient (CLI) | payer MEDICARE, SELFPAY ==
--- NOTE | 2023-09-20 | DI.RAD.S_ITS ---
PROCEDURE: XR CHEST 2V INDICATIONS: pneumonia of right middle lobe due to infectious organism TECHNIQUE: 2 views of the chest were acquired. COMPARISON: [facility], CR, XR CHEST 2V, 06/14/2023, 10:21. FINDINGS: Surgical changes and devices: Left chest wall pacer. Lungs and pleura: Patchy consolidation in the middle lobe. No pleural effusions or pneumothorax. Mediastinum: Mediastinal contours are normal. Heart size is normal. Pacer electrodes terminate in expected positions. Aortic arch is calcified, indicating atherosclerosis. Bones and chest wall: No suspicious bony abnormalities. Soft tissues appear unremarkable. Mild multilevel degenerative changes of the spine. IMPRESSION: Patchy consolidation in the middle lobe suggestive of aspiration and/or pneumonia. Recommend radiographic follow-up to document resolution and rule out underlying neoplasm. Dictated by: Jian Voss M.D. on 09/20/2023 at 16:53 Approved by: Jian Vsos M.D. on 09/20/2023 at 16:54
[2023-09-20 14:45] LABS: Add Manual Diff / Slide Review NO; Basophils Absolute Auto 0 /uL (0-100); Basophils Percent Auto 0.5 % (0-2); Eosinophils Absolute Auto 200 /uL (0-450); Eosinophils Percent Auto 1.9 % (2-4); Hematocrit 37.8 % (41-53); Hemoglobin 12.6 g/dL (13.5-17.5); Lymphocytes Absolute Auto 1700 /uL (1100-4500); Lymphocytes Percent Auto 20.9 % (25-40); Mean Corpuscular HGB Conc 33.3 % (30-36); Mean Corpuscular Hemoglobin 31.9 PG (26-34); Mean Corpuscular Volume 95.8 fL (80-100); Monocytes Absolute Auto 500 /uL (0-900); Monocytes Percent Auto 6.7 % (3-14); Neutrophils Absolute Auto 5700 /uL (1500-7000); Platelet Count 234 X10^3/uL (150-400); Red Blood Cell Count 3.94 X10^6/uL (4.5-5.9); Red Cell Distribution Width 12.3 % (11.6-14.8); White Blood Cell Count 8.1 X10^3/uL (4.5-11.0)
[2023-09-20 14:52] LABS: INR 2.8 (0.9-1.3); Prothrombin Time 31.9 SECONDS (9.4-12.5)
[2023-09-20 15:00] LABS: BUN Creatinine Ratio 17.6 (6-22); Blood Urea Nitrogen 16 mg/dL (9-20); Calcium 8.8 mg/dL (8.4-10.2); Carbon Dioxide 30 mmol/L (22-32); Chloride 103 mmol/L (98-107); Estimated Glomerular Filt Rate > 60 mL/min (>60); Glucose 110 mg/dL (80-110); HEMOLYSIS < 15 (0-50); Potassium 4.3 mmol/L (3.4-5.1); Sodium 137 mmol/L (137-145)
== END ==
LOC: LAB 13:45
PROVIDERS: Family Provider Family Medicine; PCP Family Medicine; Referring Provider Family Medicine; Visit Provider Family Medicine
DX: J18.9 Pneumonia, unspecified organism (principal); G45.9 Transient cerebral ischemic attack, unspecified; Z13.0 Encounter for screening for diseases of the blood and blood-forming organs and certain disorders involving the immune mechanism; I48.11 Longstanding persistent atrial fibrillation; Z79.01 Long term (current) use of anticoagulants
CPT/HCPCS: 36415; 71046; 80048; 85025; 85610

== ENCOUNTER → 2023-10-24 11:17 | Outpatient (CLI) | payer MEDICARE, SELFPAY ==
[2023-10-24 12:59] LABS: BUN Creatinine Ratio 15.2 (6-22); Blood Urea Nitrogen 14 mg/dL (9-20); Calcium 9.2 mg/dL (8.4-10.2); Carbon Dioxide 29 mmol/L (22-32); Chloride 104 mmol/L (98-107); Estimated Glomerular Filt Rate > 60 mL/min (>60); Glucose 135 mg/dL (80-110); HEMOLYSIS < 15 (0-50); Potassium 4.3 mmol/L (3.4-5.1); Sodium 140 mmol/L (137-145)
== END ==
LOC: LAB 11:19
PROVIDERS: Family Provider Family Medicine; PCP Family Medicine
DX: I87.1 Compression of vein (principal)
CPT/HCPCS: 36415; 80048

== ENCOUNTER → 2023-11-11 12:27 | Outpatient (CLI) | payer MEDICARE, SELFPAY ==
--- NOTE | 2023-11-11 12:28 | DI.RAD.S_ITS ---
PROCEDURE: XR CHEST 2V INDICATIONS: PNEUMONIA TECHNIQUE: 2 views of the chest were acquired. COMPARISON: [facility], CR, XR CHEST 2V, 09/20/2023, 13:16. [facility], CR, XR CHEST 2V, 06/14/2023, 10:21. FINDINGS: Surgical changes and devices: Normal positioning of cardiac pacemaking device and dual chamber leads.. Lungs and pleura: Lungs are improved with resolution of a medial right middle lobe pneumonia present 09/20/23. No pleural effusions or pneumothorax. Mediastinum: Mediastinal contours are normal. Heart size is normal. Bones and chest wall: No suspicious bony abnormalities. Soft tissues appear unremarkable. IMPRESSION: Resolution of medial segment right middle lobe pneumonia. Dictated by: Philippe Hernandez M.D. on 11/11/2023 at 14:49 Approved by: Philippe Hernandez M.D. on 11/11/2023 at 14:50
== END ==
PROVIDERS: Family Provider Family Medicine; PCP Family Medicine; Referring Provider Family Medicine; Visit Provider Family Medicine
DX: J18.9 Pneumonia, unspecified organism (principal)
CPT/HCPCS: 71046

== ENCOUNTER → 2024-06-18 15:04 | Outpatient (ROUT) | payer MEDICARE, SELFPAY ==
[2024-06-18 15:17] LABS: INR 1.4 (0.9-1.3); Prothrombin Time 16.1 SECONDS (9.4-12.5)
== END ==
PROVIDERS: Family Provider Family Medicine; PCP Family Medicine; Visit Provider Family Medicine
DX: I48.11 Longstanding persistent atrial fibrillation (principal); Z79.01 Long term (current) use of anticoagulants
CPT/HCPCS: 85610

== ENCOUNTER → 2024-06-28 08:32 | Outpatient (ROUT) | payer MEDICARE, SELFPAY ==
[2024-06-28 08:43] LABS: INR 3.3 (0.9-1.3); Prothrombin Time 36.2 SECONDS (9.4-12.5)
== END ==
LOC: LAB 08:32
PROVIDERS: Family Provider Family Medicine; PCP Family Medicine; Visit Provider Family Medicine
DX: G45.9 Transient cerebral ischemic attack, unspecified (principal)
CPT/HCPCS: 85610

== ENCOUNTER → 2024-07-10 16:09 | Outpatient (ROUT) | payer MEDICARE, SELFPAY ==
[2024-07-10 16:24] LABS: INR 1.6 (0.9-1.3); Prothrombin Time 17.7 SECONDS (9.4-12.5)
== END ==
PROVIDERS: Family Provider Family Medicine; PCP Family Medicine; Visit Provider Family Medicine
DX: G45.9 Transient cerebral ischemic attack, unspecified (principal)
CPT/HCPCS: 85610

== ENCOUNTER → 2024-07-23 09:33 | Outpatient (ROUT) | payer MEDICARE, SELFPAY ==
[2024-07-23 09:51] LABS: INR 2.4 (0.9-1.3); Prothrombin Time 26.3 SECONDS (9.4-12.5)
== END ==
LOC: LAB 09:33
PROVIDERS: Family Provider Family Medicine; PCP Family Medicine; Visit Provider Family Medicine
DX: G45.9 Transient cerebral ischemic attack, unspecified (principal)
CPT/HCPCS: 85610

== ENCOUNTER → 2024-11-06 09:13 | Outpatient (ROUT) | payer MEDICARE, SELFPAY ==
[2024-11-06 09:27] LABS: INR 2.5 (0.9-1.3); Prothrombin Time 28.2 SECONDS (9.4-12.5)
== END ==
PROVIDERS: Family Provider Family Medicine; PCP Family Medicine; Visit Provider Family Medicine
DX: G45.9 Transient cerebral ischemic attack, unspecified (principal)
CPT/HCPCS: 85610

== ENCOUNTER → 2024-11-06 09:17 | Outpatient (CLI) | payer MEDICARE, SELFPAY ==
--- NOTE | 2024-11-06 09:18 | DI.RAD.S_ITS ---
PROCEDURE: XR CHEST 2V INDICATIONS: PLEURITIC CHEST PAIN TECHNIQUE: 2 views of the chest were acquired. COMPARISON: [facility], , XR CHEST 2V, 09/20/2023, 13:16. [facility], CR, XR CHEST 2V, 11/11/2023, 12:27. FINDINGS: Surgical changes and devices: Stable appearance of dual chamber left cardiac pacer pulse generator and leads. Lungs and pleura: Lungs are clear. No pleural effusions or pneumothorax. Mediastinum: Mediastinal contours are normal. Heart size is normal. Bones and chest wall: No suspicious bony abnormalities. Soft tissues appear unremarkable. IMPRESSION: No acute cardiopulmonary disease. Dictated by: Reji Yepez [facility] Interpreted: Frank Chawla MD on 11/06/2024 at 10:08 Approved by: Frank Chawla M.D. on 11/07/2024 at 15:03
== END ==
PROVIDERS: Family Provider Family Medicine; PCP Family Medicine; Referring Provider Family Medicine; Visit Provider Family Medicine
DX: R07.81 Pleurodynia (principal); G45.9 Transient cerebral ischemic attack, unspecified
CPT/HCPCS: 71046; 85610

== ENCOUNTER → 2024-11-15 18:50 | Outpatient (ROUT) | payer MEDICARE, SELFPAY | PROVIDERS: Family Provider Family Medicine; PCP Family Medicine; Visit Provider Registered Nurse | DX: L03.90 Cellulitis, unspecified (principal); R21 Rash and other nonspecific skin eruption; Z79.899 Other long term (current) drug therapy; B35.4 Tinea corporis | CPT/HCPCS: 87102 ==